=== PATIENT | female | born 1940 | race Caucasian/White ===

== ENCOUNTER 2017-08-19 21:58 | Inpatient (IN) | payer MEDICARE ==
[~2017-08-19] VITALS: Ht 152.4 cm; Wt 55.3 kg
[2017-08-19] MEDS: SODIUM CHLORIDE 0.9% 1000ML 1,000 ML IV SCH (01:30)
[~2017-08-19 21:58] MED LIST: CIPRO250 MG PO; CITRACAL + D E1 EACH; EXFORGE; EXFORGE HCT 101 EAC2; HYDROCODON-ACE1 EA10; KETOROLAC TROMET5 ML; PREDNISOLONE SO10 ML; VIGAMOX3 ML; Z VITAMIN D PO; Z.0.EXFORGE HCT 101 PO; Z.0.MELOXICAM15 MG PO; Z.0.PRAVASTATIN SOD8 PO
--- OUTSIDE RECORDS SUMMARY | 2017-08-19 22:00 | XMS REPORT ---
Author Author [facility] Address Unknown Phone Unavailable Care Team Providers Care Internal Audit Senior Manager Name Role Phone ZANDER BARCENAS Unavailable Unavailable Problems This patient has no known problems. Allergies, Adverse Reactions, Alerts This patient has no known allergies or adverse reactions. Medications This patient has no known medications. Results Test Description Test Time Test Comments Text Results Atomic Results Result Comments CHEST SINGLE (PORTABLE) [place] [address] Patient Name: DERIAN DUKES MR #: [id number] : 1940 Age/Sex: 76/F Req #: [id number] Adm Physician: Ordered by: ZANDER BARCENAS MD Report #: [id number] Location: ER Room/Bed: Procedure: [id number] DX/CHEST SINGLE (PORTABLE) Exam Date: 01/29/17 Exam Time: 1415 REPORT STATUS: Signed EXAMINATION: CHEST SINGLE (PORTABLE) INDICATION: Blood in stool COMPARISON : Chest x-ray 04/03/2011 FINDINGS: AP view TUBES and LINES: None. LUNGS: Lungs are well inflated. Lungs are clear. There is no evidence of pneumonia or pulmonary edema. PLEURA: No pleural effusion or pneumothorax. HEART AND MEDIASTINUM: The cardiomediastinal silhouette is unremarkable. BONES AND SOFT TISSUES: No acute osseous lesion. Soft tissues are unremarkable. UPPER ABDOMEN: No free air under the diaphragm. IMPRESSION: No acute thoracic abnormality. Signed by: Dr. Eben Villalobos M.D. on 01/29/2017 2:26 PM Dictated By: EBEN VILLALOBOS MD 25 Transcribed By: AMAN on 01/29/171425 COPY TO: ZANDER BARCENAS MD CT ABDOMEN/PELVIS W [place] [address] Patient Name: DERIAN DUKES MR #: [id number] : 1940 Age/Sex: 76/F Req #: [id number] Adm Physician: Ordered by: ZANDER BARCENAS MD Report #: [id number] Location: ER Room/Bed: Procedure: [id number] CT/CT ABDOMEN/PELVIS W Exam Date: 01/29/17 Exam Time : 1600 REPORT STATUS: Signed EXAM: CT Abdomen and Pelvis WITH contrast INDICATION: GI bleeding. Blood in the stool. Rectal bleeding. COMPARISON: CT abdomen and pelvis 09/21/2013. TECHNIQUE: Abdomen and pelvis were scanned utilizing a multidetector helical scanner from the lung base to the pubic symphysis after administration of IV contrast. Coronal and sagittal reformations were obtained. Routine protocol was performed. Scan was performed when during portal venous phase. IV CONTRAST: 100 mL of Isovue 370 ORAL CONTRAST: Gastrografin COMPLICATIONS: None RADIATION DOSE: Total DLP: 246 mGy*cm Estimated effective dose: (DLP x 0.015 x size factor) mSv CTDIvol has been reviewed. It is below the limits set by the Radiation Protocol Committee (RPC) . FINDINGS: LINES and TUBES: None. LOWER THORAX: Unremarkable HEPATOBILIARY: No focal hepatic lesions. No biliary ductal dilation. GALLBLADDER: No radio-opaque stones or sludge. No wall thickening. SPLEEN: No splenomegaly. PANCREAS: No focal masses or ductal dilatation. ADRENALS: No adrenal nodules KIDNEYS/URETERS: Kidneys enhance symmetrically. Right extrarenal pelvis. No hydronephrosis. No cystic or solid mass lesions. No stones. GI TRACT: No abnormal distention, wall thickening , or evidence of bowel obstruction. 1.9 cm duodenal diverticulum. There are diverticula within the colon without evidence of diverticulitis. Appendix is normal. PELVIC ORGANS/BLADDER: Unremarkable. LYMPH NODES: No lymphadenopathy. VESSELS: There is moderate atherosclerotic disease in the aorta and major arterial branches. PERITONEUM / RETROPERITONEUM: No free air or fluid. BONES: Unremarkable. SOFT TISSUES: Unremarkable. IMPRESSION: 1. No acute abnormalities in the abdomen or pelvis. 2. No source of rectal/GI bleeding. Signed by: Dr. Eben Villalobos M.D. on 01/29 4:54 PM Dictated By: EBEN VILLALOBOS MD [id number] Transcribed By: AMAN on 01/29/176 COPY TO: ZANDER BARCENAS MD
[2017-08-19] MEDS ORDERED: SODIUM CHLORIDE 0.9% 1000ML 1,000 ML IV STA (22:36)
[2017-08-19] MEDS ORDERED: PANTOPRAZOLE 40 MG 10ML VIAL IV STA ×2 (22:36→22:56)
[2017-08-19] MEDS ORDERED: MORPHINE SULFATE 2 MG/ML SYR IV STA (23:29)
[2017-08-19] MEDS ORDERED: ONDANSETRON HCL INJ 2 MG/ML VIAL IV STA (23:29)
[2017-08-19] MEDS ORDERED: ONDANSETRON HCL INJ 2 MG/ML VIAL IV PRN (23:30)
[2017-08-19] MEDS ORDERED: MORPHINE SULFATE 2 MG/ML SYR IV PRN (23:30)
[2017-08-20] VITALS (9 sets, daily range): BP systolic 128–182; BP diastolic 60–78
[2017-08-20] MEDS ORDERED: CLARITIN-D 241 EACH PO (02:31)
[2017-08-20] MEDS ORDERED: SIMVASTATIN20 MG PO (02:31)
[2017-08-20] MEDS ORDERED: CYCLOBENZAPRIN7.5 MG PO (02:31)
[2017-08-20] MEDS: PANTOPRAZOLE 40 MG 10ML VIAL IV SCH ×2 (08:02→20:52)
[2017-08-20] MEDS: SODIUM CHLORIDE 0.9% 1000ML 1,000 ML IV SCH (09:14)
[2017-08-20 10:03] LABS: EOSINOPHILS % 0.5 % (0.0-6.0); HEMATOCRIT 26.7 % (34.2-44.1); HEMOGLOBIN 8.9 g/dL (12.0-16.0); LYMPHOCYTES % 51.9 % (18.0-39.1); MEAN CORPUSCULAR HEMOGLOBIN 31.1 pg (28-32); MEAN CORPUSCULAR HGB CONC 33.3 g/dL (31-35); MEAN CORPUSCULAR VOLUME 93.4 fL (81-99); MONOCYTES # (AUTO) 0.1 (0.2-0.8); MONOCYTES % 5.9 % (4.4-11.3); NEUTROPHILS # (AUTO) 0.8 (2.1-6.9); NEUTROPHILS % 41.2 % (38.7-80.0); PLATELET COUNT 76 x10e3/uL (140-360); RED BLOOD COUNT 2.86 x10e6/uL (3.6-5.1); RED CELL DISTRIBUTION WIDTH 13.8 % (11.7-14.4)
[2017-08-20 10:18] LABS: ALANINE AMINOTRANSFERASE 14 IU/L (0-55); ALBUMIN 3.2 g/dL (3.5-5.0); ALBUMIN/GLOBULIN RATIO 1.2 (0.8-2.0); ALKALINE PHOSPHATASE 53 IU/L (40-150); ANION GAP 6.6 mmol/L (8-16); BLOOD UREA NITROGEN 10 mg/dL (7-26); BUN/CREATININE RATIO 14 (6-25); CALCIUM 8.1 mg/dL (8.4-10.2); CARBON DIOXIDE 27 mmol/L (22-29); CHLORIDE 110 mmol/L (98-107); CREATININE, SERUM 0.72 mg/dL (0.57-1.11); EST GLOMERULAR FILTRATION RATE > 60 ML/MIN (60-); GLUCOSE 90 mg/dL (74-118); POTASSIUM 3.6 mmol/L (3.5-5.1); SODIUM 140 mmol/L (136-145)
[2017-08-20 10:32] LABS: CREATINE KINASE 35 IU/L (29-168)
[2017-08-20 11:22] LABS: EOSINOPHILS % (MANUAL) 2 % (0-7); LYMPHOCYTES % (MANUAL) 45 % (19-48); METAMYELOCYTES % (MANUAL) 2 % (0-0); MYELOCYTES % (MANUAL) 1 % (0-0); NEUTROPHILS % (MANUAL) 45 % (40-74); PROMYELOCYTES % (MANUAL) 1 % (0-0); RBC MORPHOLOGY COMMENT NORMAL
[2017-08-20 11:23] LABS: ANISOCYTOSIS SLIG; ELLIPTOCYTE, RBC SLIGHT; MICROCYTOSIS SLIG; PLATELET MORPHOLOGY COMMENT NORMAL; POIKILOCYTOSIS SLIGHT
[2017-08-20 11:24] LABS: PLATELET ESTIMATE SLIGHTLY DECREASED
[2017-08-20] MEDS: AMLODIPINE BESYLATE 10 MG TAB PO SCH (12:02)
[2017-08-20 12:28] LABS: THYROID STIMULATING HORMONE 3.807 uIU/mL (0.350-4.940)
--- NOTE | 2017-08-20 12:39 | History and Physical ---
CHIEF COMPLAINT 1. Melena. 2. Pancytopenia. HISTORY: A 76-year-old female who has pancytopenia. At age 48, she was diagnosed. She is a poor historian, but she was supposed to take some pill that would make her lose hair. She had seen a leaf sucker operator multiple times, but since then she has not addressed that problem until Dr. Elina Newman sent her to another leaf sucker operator, but apparently she could not make an appointment as yet. The patient came in with pancytopenia. Her hemoglobin and hematocrit is 8.9 and 26.7 with WBC 1.8 and platelet of 76,000. No history of liver cirrhosis. No history of any other liver problem. Patient came to the hospital because she developed melena for 2 days. She has also complained of right hip and lower extremity pain. The patient is otherwise stable at this time. PAST MEDICAL HISTORY: Hypertension, pancytopenia, history of osteoarthritis and takes meloxicam, hyperlipidemia, and chronic pain. PAST SURGICAL HISTORY: Noncontributory. SOCIAL HISTORY: Patient does not smoke or use alcohol. No recreational drugs. ALLERGIES: NO KNOWN ALLERGY. HOME MEDICATIONS: Meloxicam, simvastatin, Claritin D, Delta, vitamin D, Flexeril, calcium supplement, Norvasc, losartan, and HCTZ. PHYSICAL EXAMINATION: VITAL SIGNS: Temperature is 98, blood pressure 144/67, pulse rate 63, respirations 18. GENERAL: The patient is not in acute distress. She is awake. HEENT: Normocephalic, atraumatic. Anicteric. NECK: Supple grossly. PULMONARY: Clear. CARDIOVASCULAR: Regular rate and rhythm. ABDOMEN: Soft and unremarkable. EXTREMITIES: No cyanosis or edema. NEUROLOGIC: There is no gross focal deficit. LABORATORY: WBC is 1.8, hemoglobin 8.9, hematocrit 27, platelets 76. Chemistries: Sodium 140, potassium 3.6, chloride 110, bicarb 27, BUN 10, creatinine 0.7, glucose is 90. IMAGING TESTS: Abdominal CT scan, she had that done back in January 2017, showed no abnormality. She also had chest x-ray, gallbladder ultrasound, and abdominal ultrasound. IMPRESSION 1. Pancytopenia. 2. Melena, most likely gastric ulcer given the fact that the patient is taking Mobic. 3. Hypertension baseline. PLAN: Consultation with GI. PPI. Full liquid diet for now. Patient will need to see a leaf sucker operator. Consultation with Dr. Bennett. Bone marrow needed. We will monitor the patient closely. Control her blood pressure. Job#: [id number] VAS
[2017-08-20 12:50] LABS: FOLATE 15.7 ng/mL (7.0-15.4)
[2017-08-20 16:20] LABS: EOSINOPHILS % 0.9 % (0.0-6.0); HEMATOCRIT 27.6 % (34.2-44.1); HEMOGLOBIN 9.3 g/dL (12.0-16.0); LYMPHOCYTES % 48.1 % (18.0-39.1); MEAN CORPUSCULAR HEMOGLOBIN 31.3 pg (28-32); MEAN CORPUSCULAR HGB CONC 33.7 g/dL (31-35); MEAN CORPUSCULAR VOLUME 92.9 fL (81-99); MONOCYTES # (AUTO) 0.1 (0.2-0.8); PLATELET COUNT 76 x10e3/uL (140-360); RED BLOOD COUNT 2.97 x10e6/uL (3.6-5.1); RED CELL DISTRIBUTION WIDTH 13.8 % (11.7-14.4)
[2017-08-20 16:41] LABS: CREATINE KINASE 36 IU/L (29-168)
[2017-08-20] MEDS ORDERED: SODIUM CHLORIDE 0.9% 50ML 50 ML ONE (17:42)
[2017-08-20] MEDS ORDERED: IOPAMIDOL 370 MG/ML 200 ML INFUS..BTL INJ ONE ×2 (17:44→17:56)
--- NOTE | 2017-08-20 19:59 | Diagnostic Imaging Report ---
EXAM: CT Chest, Abdomen and Pelvis WITH contrast INDICATION: #In the pineal COMPARISON: None. TECHNIQUE: Chest, abdomen and pelvis were scanned utilizing a multidetector helical scanner from the lung apex to the pubic symphysis before and after administration of IV contrast. Coronal and sagittal reformations were obtained. Routine protocol was performed. Scan was performed when during portal venous phase. IV CONTRAST: 100 mL of Isovue-370 ORAL CONTRAST: None RADIATION DOSE: Total DLP: 538.48 mGy*cm Estimated effective dose: (DLP x 0.015 x size factor) mSv COMPLICATIONS: None FINDINGS: LINES and TUBES: None. LUNGS AND AIRWAYS: The lungs are remarkable for mosaic attenuation of the lungs and biapical scarring.. Airways are normal. PLEURA: The pleural spaces are clear. HEART AND MEDIASTINUM: There are scattered subcentimeter hypodensities in the thyroid. No mediastinal, hilar or axillary lymphadenopathy. The heart is normal in size.. There is no pericardial effusion. There are mild atherosclerotic calcifications in the aorta and coronary arteries. HEPATOBILIARY: No focal hepatic lesions. No biliary ductal dilation. GALLBLADDER: No radio-opaque stones or sludge. No wall thickening. SPLEEN: No splenomegaly. PANCREAS: No focal masses or ductal dilatation. ADRENALS: No adrenal nodules KIDNEYS/URETERS: Kidneys enhance symmetrically. No hydronephrosis. No cystic or solid mass lesions. No stones. GI TRACT: No abnormal distention, wall thickening, or evidence of bowel obstruction. There are diverticula within the colon without evidence of diverticulitis. Appendix is normal. PELVIC ORGANS/BLADDER: Unremarkable. LYMPH NODES: No lymphadenopathy. VESSELS: There is mild atherosclerotic disease in the aorta and major arterial branches. PERITONEUM / RETROPERITONEUM: No free air or fluid. BONES: Unremarkable. SOFT TISSUES: Unremarkable. IMPRESSION: 1. No evidence of acute intrathoracic, abdominal or pelvic abnormality. 2. Chronic lung disease demonstrated by mosaic attenuation of the lungs which can be seen with reactive airway disease or bronchiolitis. No evidence of interstitial lung disease. Signed by: Dr. Cody Pryor M.D. on 08/20/2017 7:55 PM
--- NOTE | 2017-08-20 20:12 | Consultation ---
DATE OF CONSULTATION: August 20, 2017 Ms. Schmitz is a 77-year-old lady in [facility]. I was asked to see her because she was passing black-colored stool for 2 days. She denied any nausea, vomiting, abdominal discomfort, acid reflux symptoms, indigestion, dyspepsia, trouble with her bowels or losing weight. She was found to be pancytopenic with hemoglobin 8.9, hemoglobin 26.7, white cell count 1.8 and platelets 76. She is saying that she has used recent medicine to lose hair and thought to be contributing to her pancytopenia. She has been seen by a police captain precinct. GI-stern, she has had colonoscopy about [address] Ridley, and she reported to me it was normal. She has been using meloxicam every day for arthritis pain, and I believe that is the cause of her recent melena. REVIEW OF SYSTEMS: Unremarkable. PAST MEDICAL HISTORY: Hypertension, pancytopenia, degenerative joint disease. ALLERGIES: NONE. HOME MEDICATIONS: Meloxicam, simvastatin, clonidine, [place], vitamin D, calcium, Flexeril, Norvasc, losartan, and hydrochlorothiazide. CURRENT MEDICATIONS: Norvasc, Protonix and Zofran. PAST SURGICAL HISTORY: Noncontributory. SOCIAL HISTORY: She does not smoke or drink. PHYSICAL EXAMINATION GENERAL: Awake, alert and oriented, hemodynamically stable. VITALS: Pulse 63, temperature 97.3, respiratory rate 18, blood pressure 164/69. EYES: Normal sclerae. NECK: Supple. No node. LUNGS: Clear. HEART: Regular-regular, occasional irregular beat. ABDOMEN: Soft and nontender. No acute sign. No masses. EXTREMITIES: No edema. CENTRAL NERVOUS SYSTEM: Motor function is grossly intact. LABS: Sodium 140, potassium 3.6, BUN 10, creatinine 0.72, calcium 8.1. Iron saturation normal, B12 normal, folate normal. TSH is normal. Liver function normal. PTT 28. CT scan of the abdomen and pelvis with contrast is unremarkable. IMPRESSION: Melenic stool, most likely related to nonsteroidal anti-inflammatory drug. Will plan for upper endoscopy. Currently, no signs of active bleed. We will keep her on Protonix. MARCI SANTOS MD Job#: [id number] MH
[2017-08-21] VITALS (7 sets, daily range): BP systolic 118–132; BP diastolic 56–61
--- NOTE | 2017-08-21 02:03 | Operative Report ---
DATE OF PROCEDURE: PROCEDURE: Upper endoscopy. PREOP EVALUATION: Melena. POSTOP EVALUATION: Consent obtained from patient, explaining to the patient and her daughter the risks and benefits and other alternatives to the procedure. DESCRIPTION OF PROCEDURE: The scope was introduced under direct vision into the second portion of duodenum. Examination of first and second portion of the duodenum appeared to be normal. A biopsy was done for signs of celiac disease. Examination of the antrum, body, and fundus revealed some mild patchy erythema, and biopsies were done for Helicobacter pylori. Retroflexion revealed small hiatal hernia. Examination of the esophagus was unremarkable. Procedure was terminated. Patient tolerated the procedure well. No signs of complications during or immediately postprocedure. PLAN: Now to keep her on Protonix, advance her diet, and work other source for the melena such as small bowel and colonoscopy. Job#: [id number]
[2017-08-21 07:46] LABS: EOSINOPHILS % 0.7 % (0.0-6.0); HEMATOCRIT 27.9 % (34.2-44.1); HEMOGLOBIN 9.4 g/dL (12.0-16.0); LYMPHOCYTES % 37.1 % (18.0-39.1); MEAN CORPUSCULAR HEMOGLOBIN 31.1 pg (28-32); MEAN CORPUSCULAR HGB CONC 33.7 g/dL (31-35); MEAN CORPUSCULAR VOLUME 92.4 fL (81-99); MONOCYTES # (AUTO) 0.2 (0.2-0.8); MONOCYTES % 5.4 % (4.4-11.3); NEUTROPHILS # (AUTO) 1.6 (2.1-6.9); NEUTROPHILS % 56.4 % (38.7-80.0); PLATELET COUNT 78 x10e3/uL (140-360); RED BLOOD COUNT 3.02 x10e6/uL (3.6-5.1); RED CELL DISTRIBUTION WIDTH 13.8 % (11.7-14.4)
[2017-08-21] MEDS: AMLODIPINE BESYLATE 10 MG TAB PO SCH (08:06)
[2017-08-21] MEDS: PANTOPRAZOLE 40 MG 10ML VIAL IV SCH ×2 (08:06→21:05)
[2017-08-21 08:20] LABS: ANION GAP 10.4 mmol/L (8-16); BLOOD UREA NITROGEN 8 mg/dL (7-26); BUN/CREATININE RATIO 11 (6-25); CALCIUM 8.8 mg/dL (8.4-10.2); CARBON DIOXIDE 27 mmol/L (22-29); CHLORIDE 106 mmol/L (98-107); EST GLOMERULAR FILTRATION RATE > 60 ML/MIN (60-); GLUCOSE 79 mg/dL (74-118); POTASSIUM 3.4 mmol/L (3.5-5.1); SODIUM 140 mmol/L (136-145)
[2017-08-21] MEDS ORDERED: POTASSIUM CHLORIDE 10 MEQ TABCR PO ONE (09:45)
[2017-08-21] MEDS: CYANOCOBALAMIN INJ 1,000 MCG/ML VIAL IM SCH (10:14)
[2017-08-21] MEDS: FOLIC ACID/CYANOCOB/PYRIDOXINE TAB PO SCH (10:14)
[2017-08-21 11:42] LABS: EOSINOPHILS % 0.3 % (0.0-6.0); HEMATOCRIT 28.2 % (34.2-44.1); HEMOGLOBIN 9.5 g/dL (12.0-16.0); LYMPHOCYTES % 32.4 % (18.0-39.1); MEAN CORPUSCULAR HEMOGLOBIN 31.5 pg (28-32); MEAN CORPUSCULAR HGB CONC 33.7 g/dL (31-35); MEAN CORPUSCULAR VOLUME 93.4 fL (81-99); MONOCYTES # (AUTO) 0.2 (0.2-0.8); NEUTROPHILS # (AUTO) 1.8 (2.1-6.9); PLATELET COUNT 79 x10e3/uL (140-360); RED BLOOD COUNT 3.02 x10e6/uL (3.6-5.1); RED CELL DISTRIBUTION WIDTH 13.8 % (11.7-14.4)
[2017-08-21 18:46] LABS: EOSINOPHILS % 0.7 % (0.0-6.0); HEMATOCRIT 31.7 % (34.2-44.1); HEMOGLOBIN 10.5 g/dL (12.0-16.0); LYMPHOCYTES # (AUTO) 1.2 (1.0-3.2); LYMPHOCYTES % 41.8 % (18.0-39.1); MEAN CORPUSCULAR HEMOGLOBIN 30.7 pg (28-32); MEAN CORPUSCULAR HGB CONC 33.1 g/dL (31-35); MEAN CORPUSCULAR VOLUME 92.7 fL (81-99); MONOCYTES # (AUTO) 0.2 (0.2-0.8); MONOCYTES % 5.4 % (4.4-11.3); NEUTROPHILS # (AUTO) 1.5 (2.1-6.9); NEUTROPHILS % 52.1 % (38.7-80.0); PLATELET COUNT 101 x10e3/uL (140-360); RED BLOOD COUNT 3.42 x10e6/uL (3.6-5.1); RED CELL DISTRIBUTION WIDTH 13.8 % (11.7-14.4)
[2017-08-22 00:05] VITALS: BP 114/56
[2017-08-22 04:25] VITALS: BP 128/61
[2017-08-22 07:22] LABS: EOSINOPHILS % 1.2 % (0.0-6.0); HEMATOCRIT 26.8 % (34.2-44.1); HEMOGLOBIN 9.1 g/dL (12.0-16.0); LYMPHOCYTES # (AUTO) 1.3 (1.0-3.2); LYMPHOCYTES % 52.7 % (18.0-39.1); MEAN CORPUSCULAR HEMOGLOBIN 31.6 pg (28-32); MEAN CORPUSCULAR VOLUME 93.1 fL (81-99); MONOCYTES # (AUTO) 0.2 (0.2-0.8); MONOCYTES % 7.3 % (4.4-11.3); NEUTROPHILS % 38.8 % (38.7-80.0); PLATELET COUNT 80 x10e3/uL (140-360); RED BLOOD COUNT 2.88 x10e6/uL (3.6-5.1)
[2017-08-22 07:50] LABS: ANION GAP 8.8 mmol/L (8-16); BLOOD UREA NITROGEN 9 mg/dL (7-26); BUN/CREATININE RATIO 12 (6-25); CALCIUM 8.7 mg/dL (8.4-10.2); CARBON DIOXIDE 28 mmol/L (22-29); CHLORIDE 107 mmol/L (98-107); CREATININE, SERUM 0.73 mg/dL (0.57-1.11); EST GLOMERULAR FILTRATION RATE > 60 ML/MIN (60-); GLUCOSE 87 mg/dL (74-118); POTASSIUM 3.8 mmol/L (3.5-5.1); SODIUM 140 mmol/L (136-145)
[2017-08-22 08:00] VITALS: BP 123/60
[2017-08-22 09:00] VITALS: BP 123/60
[2017-08-22] MEDS: FOLIC ACID/CYANOCOB/PYRIDOXINE TAB PO SCH (09:08)
[2017-08-22] MEDS: CYANOCOBALAMIN INJ 1,000 MCG/ML VIAL IM SCH (09:08)
[2017-08-22] MEDS: PANTOPRAZOLE 40 MG 10ML VIAL IV SCH (09:08)
[2017-08-22] MEDS: AMLODIPINE BESYLATE 10 MG TAB PO SCH (09:09)
[2017-08-22 09:17] LABS: EOSINOPHILS % (MANUAL) 1 % (0-7); LYMPHOCYTES % (MANUAL) 43 % (19-48); MONOCYTES % (MANUAL) 7 % (3.4-9.0); MYELOCYTES % (MANUAL) 1 % (0-0); NEUTROPHILS % (MANUAL) 48 % (40-74)
[2017-08-22 09:18] LABS: ANISOCYTOSIS SLIGHT; HYPOCHROMASIA SLIGHT; PLATELET ESTIMATE SLIGHTLY DECREASED; PLATELET MORPHOLOGY COMMENT FEW LARGE; POIKILOCYTOSIS SLIGHT; RBC MORPHOLOGY COMMENT NORMAL
[2017-08-22] MEDS ORDERED: HEMOCYTE PLUS1 EACH PO (09:18)
[2017-08-22] MEDS ORDERED: INTRINSI B12-F1 EACH SL (09:20)
[2017-08-22] MEDS ORDERED: COLACE100 MG PO (09:21)
--- NOTE | 2017-08-22 09:53 | Discharge Summary ---
PRIMARY CARE PHYSICIAN: Elina Newman DO CONSULTANTS: Dr. Octavio Bennett and Dr. Rakesh Hayden. FINAL DIAGNOSES 1. 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 2. Pancytopenia with white blood cell count on admission 1.87 and platelets of 76. 3. B12 deficiency of 229. 4. Status post B12 replacement. SUMMARY: Patient is a pleasant, 76-year-old female who did not get a chance to see her bottling room worker as outpatient. She came in with lower back pain; but, more importantly, she was pancytopenic. Patient's workup found that she has low WBC and also low platelets and B12 deficiency as mentioned. She did receive B12 injection. Her latest lab work shows WBC is 2.4, hemoglobin 9.1, hematocrit 26.8 and platelets 80. The patient did have upper endoscopy due to melena. She does have some gastritis but no gross bleed. The patient's workup included iron level of 86, total iron binding capacity of 298, iron saturation 29, and transferrin 213. Troponin was negative. B12 level was 229. Folic acid was 15.7, and TSH is 3.8. The patient's BUN and creatinine are 9 and 0.73. The patient is stable. She did take Mobic at home which was discontinued. At this time, she is stable. She will go home with B12 1,000 mcg sublingual daily, Hemocyte Plus 1 tablet daily and Colace 100 mg b.i.d. She will continue her home medications except for Mobic. Patient was instructed to follow up with Dr. Rakesh Hayden of GI for M capsule and possible colonoscopy. She will follow up with Dr. Pizano, her outside bottling room worker, which she had not seen, or the bottling room worker covering for Dr. Gio Patel, whichever one she wants. She needs to follow up with repeated lab work. At this time, the patient is stable. She will go home today. Job#: [id number]
== END 2017-08-22 10:08 | disposition home or self-care (01) | DRG 812 ==
LOC: FSED 21:58 → MED/SURG3 08-20 01:01
PROVIDERS: ADMIT Internal Medicine; ATTEND Internal Medicine
PROC: 0DB98ZX Excision of Duodenum, Via Natural or Artificial Opening Endoscopic, Diagnostic (ICD-10-PCS; 2017-08-20)
PROC: 0DB68ZX Excision of Stomach, Via Natural or Artificial Opening Endoscopic, Diagnostic (ICD-10-PCS; principal; 2017-08-20 18:36)
DX: D50.0 Iron deficiency anemia secondary to blood loss (chronic) (principal); D61.818 Other pancytopenia; K92.1 Melena; E53.8 Deficiency of other specified B group vitamins; T39.395A Adverse effect of other nonsteroidal anti-inflammatory drugs [NSAID], initial encounter; M16.10 Unilateral primary osteoarthritis, unspecified hip; G89.29 Other chronic pain; I10 Essential (primary) hypertension; M16.11 Unilateral primary osteoarthritis, right hip; K44.9 Diaphragmatic hernia without obstruction or gangrene
CPT/HCPCS: 36415; 43239; 71260; 74177; 80048; 80053; 82550; 82553; 82607; 82746; 83540; 84443; 84466; 84484; 85025; 85730; 86850; 86900; 88305; 88312; 99284; J3420; J7030; Q9967

== ENCOUNTER 2017-09-12 10:29 | Emergency (ER) | payer MEDICARE ==
[~2017-09-12] VITALS: Ht 152.4 cm; Wt 53.1 kg
[~2017-09-12 10:29] MED LIST changes: +CLARITIN-D 241 EACH PO; +COLACE100 MG PO; +CYCLOBENZAPRIN7.5 MG PO; +HEMOCYTE PLUS1 EACH PO; +INTRINSI B12-F1 EACH SL; +SIMVASTATIN20 MG PO
--- OUTSIDE RECORDS SUMMARY | 2017-09-12 10:31 | XMS REPORT | Continuity of Care Document ---
Author Author [facility] Organization [facility] Address [address] [place] [address] Phone Unavailable Care Team Providers Care Halal Butcher Name Role Phone SOFIE PITTMAN DO PCP Insurance Providers Guarantor Derian Schmitz Address [address] [place] [address] Email Payer Medicare A & B Policy Number [id number] Subscriber's Name Derian Schmitz Relationship 18 Self / Same As Patient Group Name RETIRED Payer [facility] Policy Number [id number] Subscriber's Name Derian Schmitz Relationship 18 Self / Same As Patient Group Name RETIRED Advance Directives Directive Response Recorded Date/Time Does the patient have an advance directive? No 08/20/17 1:26am If yes, is advance directive on file with [facility]? No 04/03/11 5:42pm If not on file with [facility] will patient provide a copy? No 04/03/11 5:42pm Do you have a Directive to Physician? No 08/19/17 11:31pm Do you have a Medical Power of Senior Quality Assurance Specialist? No 08/19/17 11:31pm Do you have an out of hospital Do Not Resuscitate Order? No 08/19/17 11:31pm Do you have any special needs we should be aware of? No 08/19/17 11:31pm Do you have a support person here with you today? Yes 08/19/17 11:31pm Did patient receive Notice of Privacy Practices? Yes 08/19/17 11:31pm Did patient receive patient rights and responsibilities? Yes 08/19/17 11:31pm Problems Medical Problem Onset Date Status Back pain Unknown Pancytopenia Unknown UGIB (upper gastrointestinal bleed) Unknown Medications Current Home Medications Medication Dose Units Route Directions Days Qty Instructions Start Date Amlodipine/Valsartan/Hctz (Exforge Hct 10-320-25 Mg Tab) 1 Each Tablet Cyclobenzaprine Hcl 7.5 Mg Tablet 5 Mg Oral Daily Docusate Sodium (Colace) 100 Mg Cap 100 Mg Oral Twice A Day 30 Cap Ergocalciferol (Vitamin D2) (Vitamin D2) 400 Unit Tablet 1 Tab Oral Daily Fe Fumarate/Fa/Mv, Min Comb#15 (Hemocyte Plus Capsule) 1 Each Capsule 1 Tab Oral Daily Hydrocodone Bit/Acetaminophen (Hydrocodon-Acetaminophen 5-300) 1 Each Tablet Loratadine/Pseudoephedrine (Claritin-D 24 Hour Tablet) 1 Each Tab.er.24h 1 Each Oral Daily as needed for Allergy 30 Tab Simvastatin 20 Mg Tablet 20 Mg Oral Today At 9:00PM Vit B12/Intrins Fact/Fa Cmb #2 (Intrinsi A44-[id number] Tablet) 1 Each Tablet 1 Tab Sublingual Daily Past Home Medications Medication Directions Ordered Status Amlodipine/Valsartan/Hctz (Exforge Hct 10-320-25 Mg Tab) 1 Each Tablet, 1 Tab Oral Daily Discontinued Calcium Carb & Cit/Vitamin D3 (Citracal + D Er Tablet) 1 Each Tablet.er, Discontinued Ciprofloxacin Hcl (Cipro) 250 Mg Tablet, 250 Mg Oral Discontinued Ketorolac Tromethamine 5 Ml Drops, Discontinued Meloxicam 15 Mg Tablet, 1 Tab Oral Daily Discontinued Pravastatin Sodium 80 Mg Tablet, 1 Tab Oral Daily Discontinued Prednisolone Sod Phosphate (Prednisolone Sodium Phosphate) 10 Ml Drops, Discontinued Social History Social History Problem Response Recorded Date/Time Onset Date Status Hx Psychiatric Problems No 08/20/2017 1:26am Not Applicable Not Applicable Hx Eating Disorder No 08/20/2017 1:26am Not Applicable Not Applicable Hx Substance Use Disorder No 08/20/2017 1:26am Not Applicable Not Applicable Hx Depression No 08/20/2017 1:26am Not Applicable Not Applicable Hx Alcohol Use No 08/20/2017 1:26am Not Applicable Not Applicable Hx Substance Use Treatment No 08/20/2017 1:26am Not Applicable Not Applicable Hx Physical Abuse No 08/20/2017 1:26am Not Applicable Not Applicable Smoking Status Start Date Stop Date Never Smoker Hospital Discharge Instructions No hospital discharge instruction information available. Plan of Care Discharge Date 08/22/17 10:08am Disposition HOME, SELF-CARE Instructions/Education Provided GI Bleeding Prescriptions See Medication Section Additional Instructions/Education GI soft diet (No spicy foods) Activities as tolerated Follow Up WITH DR. SANTOS FOR FURTHER GI WORK UP, Follow Up WITH NUCLEAR EQUIPMENT TEST ENGINEER OF CHOICE NEXT WEEK, Follow Up WITH PCP IN ONE WEEK Functional Status Query Response Date Recorded Assistive Devices None August 20, 2017 1:30am Ambulation Ability Minimum Assistance August 20, 2017 1:30am Toileting Ability Independent August 21, 2017 9:00pm Allergies, Adverse Reactions, Alerts Allergen Type Severity Reaction Status Last Updated No Known Drug Allergies Allergy Unknown Active 08/20/17 Immunizations No immunization information available. Vital Signs Acute Vital Signs Vital Response Date/Time Temperature (Fahrenheit) 97.8 degrees F (97.6 - 99.5) 08/22/2017 9:00am Pulse Pulse Rate (adult) 67 bpm (60 - 90) 08/22/2017 9:00am Respiratory Rate 18 bpm (12 - 24) 08/22/2017 9:00am Blood Pressure 123/60 mm Hg 08/22/2017 9:00am Height 5 ft 0 in 08/19/2017 10:00pm Weight 122 lb 08/19/2017 10:00pm Body Mass Index 23.8 kg/m^2 08/20/2017 1:26am Results Laboratory Results Test Name Result Units Flags Reference Collection Date/Time Result Date/ Time Comments Prothrombin Time 12.5 seconds 11.9-14.5 01/29/2017 2:35pm 01/29/2017 2: 57pm Prothromb Time International Ratio 0.89 01/29/2017 2:35pm 2016 2:57pm Oral Anticoagulant Therapy INR Values: 1. Low Intensity Therapy 1.5 - 2.0 2. Moderate Intensity Therapy 2.0 - 3.0 3. High Intensity Therapy(1) 2.5 - 3.5 4. High Intensity Therapy(2) 3.0 - 4.0 5. Panic Value INR > 5.0 Urine Color YELLOW YELLOW 01/29/2017 2:35pm 01/29/2017 2:59pm Urine Clarity CLEAR CLEAR 01/29/2017 2:35pm 01/29/2017 2:59pm Urine Specific Pillow 1.015 1.010-1.025 01/29/2017 2:35pm 2016 2:59pm Urine pH 5 5 - 7 01/29/2017 2:35pm 01/29/2017 2:59pm Urine Leukocyte Esterase 2+ H NEGATIVE 01/29/2017 2:35pm 01/29/2017 2: 59pm Urine Nitrite POSITIVE H NEGATIVE 01/29/2017 2:35pm 01/29/2017 2:59pm Urine Protein NEGATIVE NEGATIVE 01/29/2017 2:35pm 01/29/2017 2:59pm Urine Glucose (UA) 1+ H NEGATIVE 01/29/2017 2:35pm 01/29/2017 2:59pm Urine Ketones NEGATIVE NEGATIVE 01/29/2017 2:35pm 01/29/2017 2:59pm Urine Urobilinogen 8 mg/dL H 0.2 - 1 01/29/2017 2:35pm 01/29/2017 2: 59pm Urine Bilirubin 3+ H NEGATIVE 01/29/2017 2:35pm 01/29/2017 2:59pm Urine Blood TRACE H NEGATIVE 01/29/2017 2:35pm 01/29/2017 2:59pm Urine WBC 0-5 /HPF 0-5 01/29/2017 2:35pm 01/29/2017 3:13pm Urine RBC 0-5 /HPF 0-5 01/29/2017 2:35pm 01/29/2017 3:13pm Urine Bacteria RARE /HPF NONE 01/29/2017 2:35pm 01/29/2017 3:13pm Urine Epithelial Cells FEW /LPF NONE 01/29/2017 2:35pm 01/29/2017 3: 13pm Urine Transitional Epithelial Cells FEW H NONE 01/29/2017 2:35pm 01/29 3:13pm White Blood Count 2.45 x10e3/uL L 4.8-10.8 08/22/2017 6:08/22/2017 7:25am Red Blood Count 2.88 x10e6/uL L 3.6-5.1 08/22/2017 6:08/22/2017 7: 25am Hemoglobin 9.1 g/dL L 12.0-16.0 08/22/2017 6:08/22/2017 7:25am Hematocrit 26.8 % L 34.2-44.1 08/22/2017 6:08/22/2017 7:25am Mean Corpuscular Volume 93.1 fL 81-99 08/22/2017 6:08/22/2017 7: 25am Mean Corpuscular Hemoglobin 31.6 pg 28-32 08/22/2017 6:08/22/2017 7:25am Mean Corpuscular Hemoglobin Concent 34.0 g/dL 31-35 08/22/2017 6:08/22/2017 7:25am Red Cell Distribution Width 14.0 % 11.7-14.4 08/22/2017 6:2017 7:25am Platelet Count 80 x10e3/uL L 140-360 08/22/2017 6:08/22/2017 7: 25am Neutrophils (%) (Auto) 38.8 % 38.7-80.0 08/22/2017 6:08/22/2017 7: 25am Lymphocytes (%) (Auto) 52.7 % H 18.0-39.1 08/22/2017 6:08/22/2017 7 :25am Monocytes (%) (Auto) 7.3 % 4.4-11.3 08/22/2017 6:08/22/2017 7: 25am Eosinophils (%) (Auto) 1.2 % 0.0-6.0 08/22/2017 6:08/22/2017 7: 25am Basophils (%) (Auto) 0.0 % 0.0-1.0 08/22/2017 6:08/22/2017 7:25am IM GRANULOCYTES % 0.0 % 0.0-1.0 08/22/2017 6:08/22/2017 7:25am Neutrophils # (Auto) 1.0 L 2.1-6.9 08/22/2017 6:30am 08/22/2017 7: 25am Lymphocytes # (Auto) 1.3 1.0-3.2 08/22/2017 6:30am 08/22/2017 7:25am Monocytes # (Auto) 0.2 0.2-0.8 08/22/2017 6:30am 08/22/2017 7:25am Eosinophils # (Auto) 0.0 0.0-0.4 08/22/2017 6:30am 08/22/2017 7:25am Basophils # (Auto) 0.0 0.0-0.1 08/22/2017 6:30am 08/22/2017 7:25am Absolute Immature Granulocyte (auto 0 x10e3/uL 0-0.1 08/22/2017 6:3008/22/2017 7:25am Differential Total Cells Counted 100 08/22/2017 6:3008/22/2017 9 :18am Neutrophils % (Manual) 48 % 40-74 08/22/2017 6:30am 08/22/2017 9:18am Lymphocytes % (Manual) 43 % 19-48 08/22/2017 6:30am 08/22/2017 9:18am Monocytes % (Manual) 7 % 3.4-9.0 08/22/2017 6:30am 08/22/2017 9:18am Eosinophils % (Manual) 1 % 0-7 08/22/2017 6:30am 08/22/2017 9:18am Basophils % (Manual) 1 % 0-1.5 08/20/2017 9:30am 08/20/2017 11:24am Metamyelocytes % 2 % H 0-0 08/20/2017 9:30am 08/20/2017 11:24am Myelocytes % 1 % H 0-0 08/22/2017 6:30am 08/22/2017 9:18am Promyelocytes % 1 % H 0-0 08/20/2017 9:30am 08/20/2017 11:24am Reactive Lymphocytes 3 08/20/2017 9:30am 08/20/2017 11:24am Platelet Estimate SLIGHTLY DECREASED 08/22/2017 6:3008/22/2017 9 :18am Platelet Morphology Comment FEW LARGE 08/22/2017 6:30am 08/22/2017 9:18am Hypochromasia SLIGHT 08/22/2017 6:30am 08/22/2017 9:18am Poikilocytosis SLIGHT 08/22/2017 6:30am 08/22/2017 9:18am Anisocytosis SLIGHT 08/22/2017 6:30am 08/22/2017 9:18am Microcytosis SLIG 08/20/2017 9:30am 08/20/2017 11:24am Elliptocytes SLIGHT 08/20/2017 9:30am 08/20/2017 11:24am Red Cell Morphology Comment NORMAL 08/22/2017 6:30am 08/22/2017 9: 18am Activated Partial Thromboplast Time 28.0 seconds 23.8-35.5 08/20/2017 9: 30am 08/20/2017 10:13am Sodium Level 140 mmol/L 136-145 08/22/2017 6:30am 08/22/2017 7:52am Potassium Level 3.8 mmol/L 3.5-5.1 08/22/2017 6:30am 08/22/2017 7:52am Chloride Level 107 mmol/L 98-107 08/22/2017 6:30am 08/22/2017 7:52am Carbon Dioxide Level 28 mmol/L 22-29 08/22/2017 6:30am 08/22/2017 7: 52am Anion Gap 8.8 mmol/L 8-16 08/22/2017 6:30am 08/22/2017 7:52am Blood Urea Nitrogen 9 mg/dL 7-08/22/2017 6:3008/22/2017 7:52am Creatinine 0.73 mg/dL 0.57-1.11 08/22/2017 6:30am 08/22/2017 7:52am BUN/Creatinine Ratio 12 6-08/22/2017 6:30am 08/22/2017 7:52am Estimat Glomerular Filtration Rate > 60 ML/MIN 60- 08/22/2017 6:30am 7:52am Ranges were taken from the National Kidney Disease Education Program and the National [employer] literature. Reference ranges: 60 or greater: Normal 16-59 (for 3 consecutive months): Chronic kidney disease 15 or less: Kidney failure Glucose Level 87 mg/dL 74-118 08/22/2017 6:30am 08/22/2017 7:52am Calcium Level 8.7 mg/dL 8.4-10.2 08/22/2017 6:30am 08/22/2017 7:52am Iron Level 86 ug/dL 50-170 08/20/2017 9:50am 08/20/2017 12:10pm Total Iron Binding Capacity 298 ug/dL 261-478 08/20/2017 9:50am 2017 12:10pm Percent Iron Saturation 29 % 15-50 08/20/2017 9:50am 08/20/2017 12: 10pm Transferrin 213 mg/dL 180-382 08/20/2017 9:50am 08/20/2017 12:10pm Total Bilirubin 0.4 mg/dL 0.2-1.2 08/20/2017 9:30am 08/20/2017 10:20am Aspartate Amino Transf (AST/SGOT) 20 IU/L 5-34 08/20/2017 9:30am 2017 10:20am Alanine Aminotransferase (ALT/SGPT) 14 IU/L 0-55 08/20/2017 9:30am 11/2017 10:20am Total Protein 5.9 g/dL L 6.5-8.1 08/20/2017 9:3008/20/2017 10:20am Albumin 3.2 g/dL L 3.5-5.0 08/20/2017 9:3008/20/2017 10:20am Globulin 2.7 g/dL 2.3-3.5 08/20/2017 9:3008/20/2017 10:20am Albumin/Globulin Ratio 1.2 0.8-2.0 08/20/2017 9:3008/20/2017 10: 20am Alkaline Phosphatase 53 IU/L 40-150 08/20/2017 9:3008/20/2017 10: 20am Creatine Kinase 36 IU/L 29-168 08/20/2017 3:35pm 08/20/2017 4:44pm Creatine Kinase MB 0.70 ng/mL 0-5.0 08/20/2017 3:35pm 08/20/2017 4: 45pm Troponin I < 0.001 ng/mL 0-0.300 08/20/2017 3:35pm 08/20/2017 4:45pm Vitamin B12 Level 229 pg/mL 213-816 08/20/2017 9:50am 08/20/2017 12: 53pm Folate 15.7 ng/mL H 7.0-15.4 08/20/2017 9:50am 08/20/2017 12:53pm Thyroid Stimulating Hormone (TSH) 3.807 uIU/mL 0.350-4.940 08/20/2017 9: 50am 08/20/2017 12:32pm Procedures Procedure Status Date Provider(s) EGD with biopsy Completed 08/20/17 MARCI SANTOS MD Computed tomography of abdomen and pelvis with contrast Active 01/29/17 ZANDER BARCENAS MD Computed tomography of chest with contrast Active 08/20/17 DEEPIKA WHITLOCK MD Computed tomography of abdomen and pelvis with contrast Active 08/20/17 DEEPIKA WHITLOCK MD Encounters Encounter Location Arrival/Admit Date Discharge/Depart Date Attending Provider Discharged Inpatient [facility] 08/20/17 1:01am 08/22/17 10:08am DEEPIKA WHITLOCK MD Departed Emergency Room [facility] 01/29/17 1:39pm 5:33pm ZANDER BARCENAS MD
[2017-09-12] MEDS ORDERED: BENADRYL25 M1 PO (10:50)
[2017-09-12] MEDS ORDERED: ULTRAM 50MG50 MG PO (10:50)
== END 2017-09-12 11:18 | disposition home or self-care (01) ==
LOC: FSED 10:29
DX: L50.1 Idiopathic urticaria (principal); L24.9 Irritant contact dermatitis, unspecified cause; I10 Essential (primary) hypertension
CPT/HCPCS: 99282

== ENCOUNTER 2017-11-05 09:14 | Emergency (ER) | payer MEDICARE ==
[~2017-11-05] VITALS: Ht 157.5 cm; Wt 52.4 kg
[~2017-11-05 09:14] MED LIST changes: +BENADRYL25 M1 PO; +ULTRAM 50MG50 MG PO
[2017-11-05 10:16] VITALS: BP 143/69
== END 2017-11-05 10:21 | disposition home or self-care (01) ==
LOC: FSED 09:14
DX: M54.6 Pain in thoracic spine (principal); S29.012A Strain of muscle and tendon of back wall of thorax, initial encounter; R11.0 Nausea; I10 Essential (primary) hypertension; E78.00 Pure hypercholesterolemia, unspecified
CPT/HCPCS: 99283

== ENCOUNTER 2017-11-30 06:07 | Emergency (ER) | payer MEDICARE ==
[~2017-11-30] VITALS: Ht 157.5 cm; Wt 50.8 kg
[2017-11-30] MEDS ORDERED: LEVOFLOXACIN 500 MG TAB PO ONE (06:30)
[2017-11-30] MEDS ORDERED: LEVOFLOXACIN 500MG/D5W 100ML 100 ML IV ONE (06:45)
[2017-11-30 08:22] VITALS: BP 146/71
== END 2017-11-30 08:20 | disposition home or self-care (01) ==
LOC: FSED 06:07
DX: R30.0 Dysuria (principal); R35.0 Frequency of micturition; R31.9 Hematuria, unspecified
CPT/HCPCS: 81003; 99284; J1956

== ENCOUNTER 2018-03-15 23:57 | Emergency (ER) | payer MEDICARE ==
[~2018-03-15] VITALS: Ht 154.9 cm; Wt 51.3 kg
[~2018-03-15 23:57] MED LIST changes: -EXFORGE HCT 101 EAC2; +EXFORGE HCT 101 EAC2 PO
--- OUTSIDE RECORDS SUMMARY | 2018-03-15 23:59 | XMS REPORT | Continuity of Care Document ---
Author Author [facility] Interface Address Unknown Phone Unavailable Problems Problem Status Onset Date Classification Date Reported Comments Source Vitamin D deficiency Active Problem 03/09/2018 [facility] DDD , lumbar Active Problem 03/09/2018 [facility] Primary insomnia Active Problem 03/09/2018 [facility] HTN Active Problem 03/09/2018 [facility] Hyperlipidemia Active Problem 03/09/2018 [facility] Sciatica Active Diagnosis 09/22/2017 [facility] Leukopenia Active Problem 03/09/2018 [facility] Influenza A Active Diagnosis 05/05/2017 [facility] URI with cough and congestion Active Diagnosis 09/22/2017 [facility] Neck pain Active Diagnosis 04/29/2017 [facility] Breast cancer screening Active Diagnosis 09/07/2016 [facility] Prediabetes Active Problem 08/06/2016 [facility] Hypothyroid Active Problem 08/06/2016 [facility] Urine frequency Active Diagnosis 08/06/2016 [facility] Right sided sciatica Active Problem 03/09/2018 [facility] Pancytopenia Active Problem 03/09/2018 [facility] Thrombocytopenia Active Problem 03/09/2018 [facility] BMI 21.0-21.9, adult Active Diagnosis 09/22/2017 [facility] Adverse effect of other nonsteroidal anti-inflammatory drugs [NSAID], initial encounter Active Diagnosis 09/22/2017 [facility] Anemia, unspecified type Active Diagnosis 09/22/2017 [facility] Gastrointestinal hemorrhage, unspecified Active Diagnosis 09/22/2017 [facility] Arthritis Active Diagnosis 03/19/2015 [facility] Hyperlipidemia Active Problem 03/19/2015 [facility] Fibromyalgia Active Problem 04/30/2015 [facility] Acute nasopharyngitis Active Diagnosis 03/19/2015 [facility] Knee pain, unspecified laterality Active Diagnosis 03/19/2015 [facility] Thrombocytosis Active Problem 04/30/2015 [facility] Prediabetes Active Problem 03/19/2015 [facility] Hyperlipidemia Active Problem 04/30/2015 [facility] Hypothyroidism Active Problem 03/19/2015 [facility] HTN Active Problem 03/19/2015 [facility] Vitamin d deficiency Active Problem 11/22/2015 [facility] Body mass index of 21.0-21.9 in adult Active Problem 03/19/2015 [facility] Right hip pain Active Diagnosis 11/22/2015 [facility] Breast screening Active Diagnosis 11/22/2015 [facility] Seasonal allergic rhinitis due to pollen Active Problem 03/09/2018 [facility] Gastroesophageal reflux disease without esophagitis Active Problem 03/09/2018 [facility] Acute non-recurrent maxillary sinusitis Active Diagnosis 02/09/2018 [facility] Acute bilateral thoracic back pain Active Diagnosis 02/09/2018 [facility] Combined hyperlipidemia Active Diagnosis 04/30/2015 [facility] Encounter for immunization Active Diagnosis 01/28/2016 [facility] Breast pain Active Diagnosis 03/09/2018 [facility] Medications Medication Details Route Status Patient Instructions Ordering Provider Order Date Source Flonase 1 spray in each nostril Nasally Active 50 MCG/ACT Nasally Once a day Thompson 01/26/2018 [facility] Medrol as directed & to be started sun as discussed w/ pt Orally Active 4 mg Orally as directed Thompson 01/26/2018 [facility] Tramadol HCl 1-2 tablet as needed Orally Active 50 mg Orally every 6 hrs as needed for breakthrough pain Thompson 01/26/2018 [facility] Omeprazole 1 capsule Orally Active 20 mg Orally Once a day Thompson 01/26/2018 [facility] Exforge HCT 1 tablet Orally Active 10-320-25 MG Orally Once a day Thompson 08/26/2017 [facility] Tramadol HCl 1 tablet as needed Orally Active 50 mg Orally once or twice a day [place] 08/25/2017 [facility] Meloxicam 1 tablet Orally Active 15 MG Orally one a day PRN Alex 08/22/2017 [facility] Cheratussin AC 5 ml Orally Active 100-10 MG/5ML Orally every 4 hrs [place] 05/02/2017 [facility] Tamiflu 1 capsule Orally Active 75 mg Orally Twice a day [place] 05/02/2017 [facility] Meloxicam 1 tablet Orally Active 15 MG Orally Once a day [place] 02/01/2017 [facility] Meloxicam 1 tablet Orally Active 15 MG Orally Once a day Fred Cardenas 01/21/2017 [facility] Mirtazapine 1 tablet on the tongue and allow to dissolve before bedtime in the evening Orally Active 15 MG Orally Once a day Kevin 08/05/2016 [facility] Mirtazapine 1 tablet on the tongue and allow to dissolve before bedtime in the evening Orally Active 15 MG Orally Once a day Alex 08/05/2016 [facility] Cipro 1 tablet Orally Active 500 MG Orally Twice a day [place] 08/05/2016 [facility] Simvastatin 1 tablet in the evening Orally Active 20 MG Orally Once a day (MUST SEE DOCTOR BEFORE NEXT REFILL) Kevin 07/29/2016 [facility] Meloxicam 1 tablet Orally Active 15 MG Orally Once a day [place] 07/19/2016 [facility] Medrol (Fernando) as directed Orally Active 4 mg Orally daily Alex 11/20/2015 [facility] Simvastatin 1 tablet in the evening Orally Active 20 mg Orally Once a day for cholesterol Alex 05/21/2015 [facility] Mobic 1 tablet Orally Active 15 MG Orally Once a day as needed Kevin 05/20/2015 [facility] Benzonatate 1 capsule as needed Orally Active 200 MG Orally three times a day (tid) as needed (prn) Kevin 03/17/2015 [facility] Exforge HCT 1 tablet Orally Active 10-320-25 MG Orally Once a dayBRAND ONLY Alex 11/21/2014 [facility] Exforge HCT 1 tablet Orally Active 10-320-25 MG Orally Once a dayBRAND ONLY Alex 11/21/2014 [facility] Acetaminophen-Codeine #3 1 tablet as needed Orally Active 300- 30 MG Orally every 6 hrs for PAIN Kevin 10/24/2014 [facility] Acetaminophen-Codeine #3 1 tablet as needed Orally Active 300- 30 MG Orally every 6 hrs for PAIN Alex 10/24/2014 [facility] Simvastatin 1 tablet in the evening Orally Active 20 MG Orally Once a day for cholesterol [facility]ra Cardenas [facility] Hvgiloqesr-Mudtwngiu-UVST 1 tablet Orally Active 10-320-25 MG Orally Once a day Alex [facility] Meloxicam 1 tablet Orally Active 15 MG Orally one a day PRN Alex [facility] Citracal Calcium+D as directed Orally Active 600-40-500 MG-MG-UNIT Orally Jay [facility] Cyclobenzaprine HCl 1 tablet as needed Orally Active 5 MG Orally one a day, PRN Jay [facility] Multivitamin not defined Orally Active Orally Thompson [facility] Vicodin one half to 1 tablet as needed Orally Active 5-300 MG Orally once or twice a day if needed for pain Jay [facility] Simvastatin 1 tablet in the evening Orally Active 20 MG Orally Once a day for cholesterol Thompson [facility] Fish Oil 1 capsule Orally Active 1000 MG Orally Once a day Kevin [facility] Riakmedtzf-Bubzyzcbj-VMKM 1 tablet Orally Active 10-320-25 MG Orally Once a day Alex [facility] Vicodin one half to 1 tablet as needed Orally Active 5-300 MG Orally once or twice a day if needed for pain Alex [facility] Fish Oil 1 capsule Orally Active 1000 MG Orally Once a day Alex [facility] Simvastatin 1 tablet in the evening Orally Active 20 Orally Once a day for cholesterol Thompson [facility] Acetaminophen-Codeine 1 tablet as needed Orally Active 300-30 MG Orally every 6 hrs Kevin [facility] Cyclobenzaprine HCl 1 tablet Orally Active 5 MG Orally Three times a day Kevin [facility] Vitamin D3 as directed Orally Active 2000 UNIT Orally [facility] Cheratussin AC 5 ml Orally Active 100-10 MG/5ML Orally every 4 hrs Thompson [facility] Omeprazole 1 capsule Orally Active 40 MG Orally Once a day Jay [facility] Tramadol HCl 1 tablet as needed Orally Active 50 mg Orally once or twice a day Jay [facility] Pravastatin Sodium 1 tablet Orally No Longer Active 80 mg Orally am Alex [facility] Flexeril 1 tablet Orally Active 5 MG Orally Three times a day Kevin [facility] Citracal Calcium+D as directed Orally Active 600-40-500 MG-MG-UNIT Orally Alex [facility] Meloxicam 1 tablet Orally Active 15 MG Orally Once a day Alex [facility] Allergies, Adverse Reactions, Alerts Substance Category Reaction Severity Reaction type Status Date Reported Comments Source N.K.D.A. Adverse Reaction Info Not Available Adverse Reaction Active 01/26/2018 [facility] Immunizations Immunization Date Given Site Status Last Updated Comments Source [place]UZONE [place] & [place] [id number] 01/21/2016 completed [facility] Results Order Name Results Value Reference Range Date Interpretation Comments Source Vital Signs Vital Sign Value Date Comments Source Weight 114 01/26/2018 [facility] Height 62 01/26/2018 [facility] Temperature Oral (F) 98.4 F 01/26/2018 [facility] Heart Rate 77 01/26/2018 [facility] Diastolic (mm Hg) 72 01/26/2018 [facility] Systolic (mm Hg) 168 01/26/2018 [facility] Weight 117 09/05/2017 [facility] Height 62 09/05/2017 [facility] Temperature Oral (F) 98.1 F 09/05/2017 [facility] Heart Rate 61 09/05/2017 [facility] Diastolic (mm Hg) 62 09/05/2017 [facility] Systolic (mm Hg) 158 09/05/2017 [facility] Weight 118 08/25/2017 [facility] Height 62 08/25/2017 [facility] Temperature Oral (F) 98.4 F 08/25/2017 [facility] Heart Rate 82 08/25/2017 [facility] Diastolic (mm Hg) 60 08/25/2017 [facility] Systolic (mm Hg) 136 08/25/2017 [facility] Weight 119 07/14/2017 [facility] Height 62 07/14/2017 [facility] Heart Rate 70 07/14/2017 [facility] Diastolic (mm Hg) 62 07/14/2017 [facility] Systolic (mm Hg) 150 07/14/2017 [facility] Weight 121 05/02/2017 [facility] Height 62 05/02/2017 [facility] Temperature Oral (F) 99.4 F 05/02/2017 [facility] Heart Rate 89 05/02/2017 [facility] Diastolic (mm Hg) 64 05/02/2017 [facility] Systolic (mm Hg) 148 05/02/2017 [facility] Weight 122 04/27/2017 [facility] Height 62 04/27/2017 [facility] Heart Rate 70 04/27/2017 [facility] Diastolic (mm Hg) 66 04/27/2017 [facility] Systolic (mm Hg) 132 04/27/2017 [facility] Weight 121 08/26/2016 [facility] Height 62 08/26/2016 [facility] Heart Rate 63 08/26/2016 [facility] Diastolic (mm Hg) 60 08/26/2016 [facility] Systolic (mm Hg) 132 08/26/2016 [facility] Weight 121 08/05/2016 [facility] Height 62 08/05/2016 [facility] Heart Rate 78 08/05/2016 [facility] Diastolic (mm Hg) 68 08/05/2016 [facility] Systolic (mm Hg) 122 08/05/2016 [facility] Weight 123 01/21/2016 [facility] Height 62 01/21/2016 [facility] Diastolic (mm Hg) 72 01/21/2016 [facility] Systolic (mm Hg) 130 01/21/2016 [facility] Weight 122 11/20/2015 [facility] Height 62 11/20/2015 [facility] Diastolic (mm Hg) 70 11/20/2015 [facility] Systolic (mm Hg) 140 11/20/2015 [facility] Weight 120 05/21/2015 [facility] Height 62 05/21/2015 [facility] Heart Rate 72 05/21/2015 [facility] Diastolic (mm Hg) 76 05/21/2015 [facility] Systolic (mm Hg) 124 05/21/2015 [facility] Weight 120 03/17/2015 [facility] Height 62 03/17/2015 [facility] Temperature Oral (F) 98.4 F 03/17/2015 [facility] Heart Rate 70 03/17/2015 [facility] Diastolic (mm Hg) 80 03/17/2015 [facility] Systolic (mm Hg) 132 03/17/2015 [facility] Encounters Location Location Details Encounter Type Encounter Number Reason For Visit Attending Provider ADM Date DC Date Status Source [facility] COUGH [id number] 03/17/2015 03/17/2015 [facility] COUGH [id number] 03/17/2015 03/17/2015 [facility] COUGH [id number] 03/17/2015 03/17/2015 [facility] COUGH [id number] 03/17/2015 03/17/2015 [facility] COUGH [id number] 03/17/2015 03/17/2015 [facility] labs [id number] 04/29/2015 04/29/2015 [facility] labs [id number] 04/29/2015 04/29/2015 [facility] labs [id number] 04/29/2015 04/29/2015 [facility] labs [id number] 04/29/2015 04/29/2015 [facility] lab results [id number] 05/21/2015 05/21/2015 [facility] lab results [id number] 05/21/2015 05/21/2015 [facility] lab results [id number] 05/21/2015 05/21/2015 [facility] hip pain [id number] 11/20/2015 11/20/2015 [facility] hip pain [id number] 11/20/2015 11/20/2015 [facility] Discuss MEDS [id number] 01/21/2016 01/21/2016 [facility] Procedures Procedure Code Date Perfomer Comments Source
--- OUTSIDE RECORDS SUMMARY | 2018-03-16 | XMS REPORT ---
Author Author Jeet Thompson [facility] e[employer] Address Unknown Phone Unavailable Care Team Providers Care Senior Java Architect Name Role Phone Jeet Thompson Unavailable Allergies, Adverse Reactions, Alerts Substance Reaction Event Type N.K.D.A. Info Not Available Non Drug Allergy Problems Problem Type Condition Code Onset Dates Condition Status Problem HTN (hypertension) I10 Active Problem DDD (degenerative disc disease), lumbar M51.36 Active Problem Leukopenia D72.819 Active Problem Seasonal allergic rhinitis due to pollen J30.1 Active Problem Thrombocytopenia D69.6 Active Problem Gastroesophageal reflux disease without esophagitis K21.9 Active Problem Primary insomnia F51.01 Active Problem Vitamin D deficiency E55.9 Active Problem Pancytopenia D61.818 Active Problem Right sided sciatica M54.31 Active Assessment Acute non-recurrent maxillary sinusitis J01.00 Active Assessment Gastroesophageal reflux disease without esophagitis K21.9 Active Assessment Acute bilateral thoracic back pain M54.6 Active Assessment Seasonal allergic rhinitis due to pollen J30.1 Active Problem Hyperlipidemia E78.5 Active Medications Medication Code System Code Instructions Start Date End Date Status Dosage Citracal Calcium+D ND 0 600-40-500 MG-MG-UNIT Orally Active as directed Flonase ND 32552307474 50 MCG/ACT Nasally Once a day Jan 26, 2018 Active 1 spray in each nostril Exforge HCT ND 30606193982 10-320-25 MG Orally Once a day August 26, 2017 Active 1 tablet Medrol ND 76583658158 4 mg Orally as directed Jan 26, 2018 Feb 01, 2018 Active as directed & to be started sun as discussed w/ pt Cyclobenzaprine HCl ND 46090045207 5 MG Orally one a day, PRN Active 1 tablet as needed Tramadol HCl ND 32051095125 50 mg Orally every 6 hrs as needed for breakthrough pain Jan 26, 2018 Mar 27, 2018 Active 1-2 tablet as needed Simvastatin ND 88192528922 20 Orally Once a day for cholesterol Active 1 tablet in the evening Cheratussin AC [facility] 11763420905 100-10 MG/5ML Orally every 4 hrs Active 5 ml Omeprazole [facility] 21406580470 40 MG Orally Once a day Active 1 capsule Omeprazole [facility] 84620780405 20 mg Orally Once a day Jan 26, 2018 Active 1 capsule Vicodin [facility] 37958464794 5-300 MG Orally once or twice a day if needed for pain Active one half to 1 tablet as needed Multivitamin [facility] 62154-46750 Orally Active not defined Simvastatin [facility] 88841380075 20 MG Orally Once a day for cholesterol Active 1 tablet in the evening Tramadol HCl [facility] 18950910852 50 mg Orally once or twice a day Active 1 tablet as needed Vital Signs Date/Time: Jan 26, 2018 BMI 20.85 Index Weight 114 lbs Height 62 in Temperature 98.4 F Cardiac Monitoring Heart Rate 77 /min Blood Pressure Diastolic 72 mm Hg Blood Pressure Systolic 168 mm Hg Results Name Result Date Reference Range Unit Abnormality Flag KENALOG 10MG EKG DECADRON 1MGx4 Summary Purpose eClinicalWorks Submission
--- OUTSIDE RECORDS SUMMARY | 2018-03-16 | XMS REPORT ---
Author Author Elina Gibbons Organization [employer] Address Unknown Phone Unavailable Care Team Providers Care Contact Center Consultant Name Role Phone Elina Gibbons CP Unavailable Allergies No Known Allergies Problems Problem Type Condition Code Onset Dates Condition Status Problem HTN (hypertension) I10 Active Problem DDD (degenerative disc disease), lumbar M51.36 Active Problem Leukopenia D72.819 Active Assessment Breast pain N64.4 Active Problem Hyperlipidemia E78.5 Active Problem Seasonal allergic rhinitis due to pollen J30.1 Active Problem Thrombocytopenia D69.6 Active Problem Gastroesophageal reflux disease without esophagitis K21.9 Active Problem Primary insomnia F51.01 Active Problem Vitamin D deficiency E55.9 Active Problem Pancytopenia D61.818 Active Problem Right sided sciatica M54.31 Active Medications No Known Medications Results No Known Results Summary Purpose eClinicalWorks Submission
[2018-03-16] MEDS ORDERED: ONDANSETRON HCL INJ 2 MG/ML VIAL IV STA (00:37)
[2018-03-16] MEDS ORDERED: FAMOTIDINE 20 MG/2 ML VIAL IV STA (00:37)
== END 2018-03-16 01:43 | disposition home or self-care (01) ==
LOC: FSED 23:57
DX: R11.2 Nausea with vomiting, unspecified (principal); K29.00 Acute gastritis without bleeding; I10 Essential (primary) hypertension; E78.5 Hyperlipidemia, unspecified; M54.5 Low back pain; M19.012 Primary osteoarthritis, left shoulder; M19.011 Primary osteoarthritis, right shoulder
CPT/HCPCS: 80053; 81003; 82553; 84484; 85025; 93005; 99283

== ENCOUNTER 2018-03-18 02:53 | Emergency (ER) | payer MEDICARE ==
[~2018-03-18] VITALS: Ht 154.9 cm; Wt 51.3 kg
[2018-03-18 03:16] LABS: HEMATOCRIT 38.4 % (34.2-44.1); HEMOGLOBIN 12.8 g/dL (12.0-16.0); LYMPHOCYTES # (AUTO) 1.1 (1.0-3.2); LYMPHOCYTES % 38.8 % (18.0-39.1); MEAN CORPUSCULAR HEMOGLOBIN 31.2 pg (28-32); MEAN CORPUSCULAR HGB CONC 33.3 g/dL (31-35); MEAN CORPUSCULAR VOLUME 93.7 fL (81-99); MONOCYTES # (AUTO) 0.3 (0.2-0.8); MONOCYTES % 9.2 % (4.4-11.3); NEUTROPHILS # (AUTO) 1.4 (2.1-6.9); PLATELET COUNT 123 x10e3/uL (140-360); RED CELL DISTRIBUTION WIDTH 14.6 % (11.7-14.4)
[2018-03-18 03:26] LABS: INR 0.93; PARTIAL THROMBOPLASTIN TIME 26.4 seconds (23.8-35.5); PROTHROMBIN TIME 13.3 seconds (11.9-14.5)
[2018-03-18] MEDS ORDERED: PANTOPRAZOLE SO40 MG PO (03:33)
[2018-03-18] MEDS ORDERED: FLUTICASONE PRO16 GM (03:33)
[2018-03-18] MEDS ORDERED: ZOFRAN ODT4 MG SL (03:33)
[2018-03-18 03:35] LABS: ALANINE AMINOTRANSFERASE 12 IU/L (0-55); ALBUMIN 4.3 g/dL (3.5-5.0); ALBUMIN/GLOBULIN RATIO 1.2 (0.8-2.0); ALKALINE PHOSPHATASE 61 IU/L (40-150); ANION GAP 17.7 mmol/L (8-16); BLOOD UREA NITROGEN 18 mg/dL (7-26); CALCIUM 9.8 mg/dL (8.4-10.2); CARBON DIOXIDE 25 mmol/L (22-29); CHLORIDE 100 mmol/L (98-107); CREATINE KINASE 40 IU/L (29-168); GLUCOSE 112 mg/dL (74-118); POTASSIUM 3.7 mmol/L (3.5-5.1); SODIUM 139 mmol/L (136-145)
--- NOTE | 2018-03-18 03:37 | Diagnostic Imaging Report ---
EXAM: CHEST 2 VIEWS, PA and lateral INDICATION: Chest pain COMPARISON: None FINDINGS: LINES/TUBES: None LUNGS: No consolidations or edema. Biapical pleural parenchymal scarring. PLEURA: No effusions or pneumothorax. HEART AND MEDIASTINUM: Normal size and contour. BONES AND SOFT TISSUES: No acute findings. IMPRESSION: No acute thoracic abnormality. Signed by: Dr. Vicki Arcos M.D. on 03/18/2018 3:33 AM
[2018-03-18] MEDS ORDERED: ONDANSETRON HCL INJ 2 MG/ML VIAL IV STA (03:41)
[2018-03-18] MEDS ORDERED: FAMOTIDINE 20 MG/2 ML VIAL IV STA (03:41)
[2018-03-18] MEDS ORDERED: BELLADONNA ALK/PHENOBARBITAL 5 ML UDC ONE (03:44)
[2018-03-18] MEDS ORDERED: FAMOTIDINE 20 MG/2 ML VIAL IV ONE (03:44)
[2018-03-18] MEDS ORDERED: BELLADONNA ALK/PHENOBARBITAL 5 ML UDC PO ONE (03:45)
[2018-03-18] MEDS ORDERED: LIDOCAINE VISC 2% SOLN 15 ML UDC PO ONE (03:45)
[2018-03-18] MEDS ORDERED: MAGNESIUM/ALUMINUM/SIMETHICONE 30 ML UDC PO ONE (03:45)
[2018-03-18 03:55] LABS: BUN/CREATININE RATIO 17 (6-25); CREATININE, SERUM 1.04 mg/dL (0.57-1.11); EST GLOMERULAR FILTRATION RATE 51 ML/MIN (60-)
[2018-03-18] MEDS ORDERED: SODIUM CHLORIDE 0.9% 500ML 500 ML IV STA (04:38)
[2018-03-18] MEDS ORDERED: SODIUM CHLORIDE 0.9% 500ML 500 ML ONE (04:38)
[2018-03-18] MEDS ORDERED: SODIUM CHLORIDE 0.9% 50ML 50 ML ONE (04:45)
[2018-03-18] MEDS ORDERED: IOPAMIDOL 370 MG/ML 200 ML INFUS..BTL INJ ONE (04:45)
--- NOTE | 2018-03-18 05:33 | Diagnostic Imaging Report ---
EXAM: CT ABDOMEN AND PELVIS with IV CONTRAST DATE: 03/18/2018 4:29 AM Time stamp on Exam: 0506 hours INDICATION: Epigastric pain COMPARISON: August 20, 2017 TECHNIQUE: The abdomen and pelvis were scanned using a multidetector helical scanner. Coronal and sagittal reformations were obtained. Dose modulation, iterative reconstruction, and/or weight based adjustment of the mA/kV was utilized to reduce the radiation dose to as low as reasonably achievable. Routine protocol performed. IV Contrast: 100 cc Isovue-370 Oral Contrast: None FINDINGS: LOWER THORAX: No consolidations LIVER: No masses BILIARY: The gallbladder is unremarkable. No ductal dilation. SPLEEN: No masses PANCREAS: No masses ADRENALS: No nodules KIDNEYS: Symmetric perfusion. No enhancing masses. No hydronephrosis. GI TRACT: No distention, wall thickening or evidence of obstruction. Sigmoid colon diverticulosis. Normal appendix. VESSELS: Moderate atherosclerotic changes without aneurysm. PERITONEUM/RETROPERITONEUM: No free air or fluid LYMPH NODES: No lymphadenopathy REPRODUCTIVE ORGANS: Unremarkable BLADDER: Unremarkable SOFT TISSUES: Unremarkable BONES: No suspicious bone lesions. IMPRESSION: No acute findings to explain patient's epigastric pain. Signed by: Dr. Vicki Arcos M.D. on 03/18/2018 5:29 AM
== END 2018-03-18 05:45 | disposition home or self-care (01) ==
LOC: ER 02:53
DX: R10.13 Epigastric pain (principal); R11.0 Nausea; K21.0 Gastro-esophageal reflux disease with esophagitis
CPT/HCPCS: 36415; 71046; 74177; 80053; 82550; 82553; 84484; 85025; 85610; 85730; 93005; 96374; 96375; 99284; J2405; J7040; Q9967

== ENCOUNTER 2019-02-23 05:19 | Emergency (ER) | payer MEDICARE ==
[~2019-02-23] VITALS: Ht 154.9 cm; Wt 51.3 kg
[~2019-02-23 05:19] MED LIST changes: +FLUTICASONE PRO16 GM; +PANTOPRAZOLE SO40 MG PO; +ZOFRAN ODT4 MG SL
[2019-02-23] MEDS ORDERED: ONDANSETRON HCL 4 MG ORAL DISINTEGRATING TAB PO ONE (05:45)
[2019-02-23] MEDS ORDERED: BELLADONNA ALK/PHENOBARBITAL 5 ML UDC PO SCH (05:45)
[2019-02-23] MEDS ORDERED: MAGNESIUM/ALUMINUM/SIMETHICONE 30 ML UDC PO ONE (05:45)
[2019-02-23] MEDS ORDERED: SODIUM CHLORIDE 0.9% 500ML 500 ML IV ONE (06:00)
[2019-02-23 06:24] LABS: BILIRUBIN,URINE NEGATIVE (NEGATIVE); CLARITY,URINE CLEAR (CLEAR); COLOR,URINE YELLOW (YELLOW); KETONES,URINE TRACE (NEGATIVE); LEUKOCYTE ESTERASE ,URINE NEGATIVE (NEGATIVE); NITRITE,URINE NEGATIVE (NEGATIVE); PROTEIN,URINE DIPSTICK NEGATIVE (NEGATIVE); URINE UROBILINOGEN 0.2 mg/dL (0.2 - 1)
[2019-02-23 06:25] LABS: HEMATOCRIT 37.9 % (34.2-44.1); HEMOGLOBIN 12.4 g/dL (12.0-16.0); LYMPHOCYTES # (AUTO) 0.6 (1.0-3.2); LYMPHOCYTES % 20.8 % (18.0-39.1); MEAN CORPUSCULAR HEMOGLOBIN 30.2 pg (28-32); MEAN CORPUSCULAR HGB CONC 32.7 g/dL (31-35); MEAN CORPUSCULAR VOLUME 92.4 fL (81-99); MONOCYTES # (AUTO) 0.1 (0.2-0.8); MONOCYTES % 3.8 % (4.4-11.3); NEUTROPHILS % 74.6 % (38.7-80.0); PLATELET COUNT 108 x10e3/uL (140-360); RED CELL DISTRIBUTION WIDTH 14.5 % (11.7-14.4)
[2019-02-23 06:33] LABS: BACTERIA,URINE RARE /HPF; RBC,URINE 0-5 /HPF (0-5); WBC,URINE (MAN) 0-5 /HPF (0-5)
[2019-02-23 06:34] LABS: EPITHELIAL CELLS,URINE FEW /LPF
[2019-02-23 06:37] LABS: INR 0.88; PROTHROMBIN TIME 12.4 seconds (11.9-14.5)
[2019-02-23 06:38] LABS: PARTIAL THROMBOPLASTIN TIME 29.7 seconds (23.8-35.5)
[2019-02-23 06:46] LABS: ALANINE AMINOTRANSFERASE 11 IU/L (0-55); ALBUMIN 4.2 g/dL (3.5-5.0); ALKALINE PHOSPHATASE 82 IU/L (40-150); ANION GAP 14.7 mmol/L (8-16); BLOOD UREA NITROGEN 10 mg/dL (7-26); BUN/CREATININE RATIO 12 (6-25); CARBON DIOXIDE 27 mmol/L (22-29); CHLORIDE 100 mmol/L (98-107); CREATINE KINASE 67 IU/L (29-168); CREATININE, SERUM 0.84 mg/dL (0.57-1.11); EST GLOMERULAR FILTRATION RATE > 60 ML/MIN (60-); GLUCOSE 136 mg/dL (74-118); POTASSIUM 3.7 mmol/L (3.5-5.1); SODIUM 138 mmol/L (136-145)
[2019-02-23 07:10] VITALS: BP 144/55
[2019-02-23 07:37] LABS: PLATELET ESTIMATE MODERATELY DECREASED
[2019-02-23 07:38] LABS: PLATELET MORPHOLOGY COMMENT FEW LARGE; RBC MORPHOLOGY COMMENT NORMAL
== END 2019-02-23 07:18 | disposition home or self-care (01) ==
LOC: ER 05:19
DX: R11.0 Nausea (principal); D72.819 Decreased white blood cell count, unspecified; I10 Essential (primary) hypertension; K21.9 Gastro-esophageal reflux disease without esophagitis; F32.9 Major depressive disorder, single episode, unspecified
CPT/HCPCS: 36415; 80053; 81001; 82550; 82553; 84484; 85025; 85610; 85730; 87086; 93005; 99284; J7040; Q0162

== ENCOUNTER 2019-02-24 21:19 | Emergency (ER) | payer MEDICARE ==
[~2019-02-24] VITALS: Ht 154.9 cm; Wt 51.3 kg
[2019-02-24 21:58] VITALS: BP 175/74
[2019-02-24] MEDS ORDERED: TRAMADOL HCL 50 MG TAB PO ONE (22:00)
== END 2019-02-24 22:05 | disposition home or self-care (01) ==
LOC: ER 21:19
DX: S16.1XXA Strain of muscle, fascia and tendon at neck level, initial encounter (principal); I10 Essential (primary) hypertension; E78.5 Hyperlipidemia, unspecified; K21.9 Gastro-esophageal reflux disease without esophagitis
CPT/HCPCS: 93005; 99282

== ENCOUNTER 2021-02-11 13:22 | Emergency (ER) | payer MEDICARE ==
[~2021-02-11] VITALS: Ht 154.9 cm; Wt 47.6 kg
[2021-02-11] MEDS ORDERED: SODIUM CHLORIDE 0.9% 500ML 500 ML IV STA (13:36)
[2021-02-11] MEDS ORDERED: SODIUM CHLORIDE 0.9% 500ML 500 ML ONE (13:54)
[2021-02-11] MEDS ORDERED: SODIUM CHLORIDE 0.9% 50ML 50 ML ONE (14:13)
[2021-02-11] MEDS ORDERED: IOPAMIDOL 370 MG/ML 200 ML INFUS..BTL INJ ONE (14:14)
[2021-02-11 15:51] VITALS: BP 162/62
== END 2021-02-11 15:55 | disposition home or self-care (01) ==
LOC: FSED 13:36
DX: I16.0 Hypertensive urgency (principal); R42 Dizziness and giddiness; K21.9 Gastro-esophageal reflux disease without esophagitis; E78.5 Hyperlipidemia, unspecified
CPT/HCPCS: 70496; 80048; 81003; 84484; 85025; 85379; 93005; 99284; J7040; Q9967

== ENCOUNTER 2021-10-20 10:08 | Emergency (ER) | payer MEDICARE ==
[~2021-10-20] VITALS: Ht 152.4 cm; Wt 49.4 kg
[2021-10-20 13:40] VITALS: BP 189/74
== END 2021-10-20 12:58 | disposition short-term general hospital (02) ==
LOC: FSED 10:42
DX: R47.81 Slurred speech (principal); I63.9 Cerebral infarction, unspecified; E78.5 Hyperlipidemia, unspecified; K21.9 Gastro-esophageal reflux disease without esophagitis; R94.31 Abnormal electrocardiogram [ECG] [EKG]
CPT/HCPCS: 70450; 80053; 82553; 84484; 85025; 85610; 93005; 99284

== ENCOUNTER 2022-02-20 05:49 | Emergency (ER) | payer MEDICARE ==
[~2022-02-20] VITALS: Ht 154.9 cm; Wt 49.4 kg
[2022-02-20 06:14] LABS: BASOPHILS % 0.4 % (0.0-1.0); EOSINOPHILS % 0.7 % (0.0-6.0); HEMOGLOBIN 10.6 g/dL (12.0-16.0); LYMPHOCYTES # (AUTO) 1.7 (1.0-3.2); LYMPHOCYTES % 61.3 % (18.0-39.1); MEAN CORPUSCULAR HEMOGLOBIN 30.9 pg (28-32); MEAN CORPUSCULAR HGB CONC 31.2 g/dL (31-35); MEAN CORPUSCULAR VOLUME 99.1 fL (81-99); MONOCYTES # (AUTO) 0.2 (0.2-0.8); MONOCYTES % 5.7 % (4.4-11.3); NEUTROPHILS # (AUTO) 0.9 (2.1-6.9); NEUTROPHILS % 31.9 % (38.7-80.0); PLATELET COUNT 101 x10e3/uL (140-360); RED BLOOD COUNT 3.43 x10e6/uL (3.6-5.1); RED CELL DISTRIBUTION WIDTH 14.1 % (11.7-14.4)
[2022-02-20] MEDS ORDERED: SODIUM CHLORIDE 0.9% 1000ML 1,000 ML IV STA (06:22)
[2022-02-20 06:28] LABS: ALANINE AMINOTRANSFERASE 9 IU/L (0-55); ALBUMIN 3.7 g/dL (3.5-5.0); ALKALINE PHOSPHATASE 62 IU/L (40-150); ANION GAP 14.3 mmol/L (8-16); BLOOD UREA NITROGEN 15 mg/dL (7-26); BUN/CREATININE RATIO 17 (6-25); CALCIUM 8.9 mg/dL (8.4-10.2); CARBON DIOXIDE 26 mmol/L (22-29); CHLORIDE 105 mmol/L (98-107); CREATINE KINASE 32 IU/L (29-168); CREATININE, SERUM 0.86 mg/dL (0.57-1.11); GLUCOSE 91 mg/dL (74-118); MAGNESIUM 2.3 MG/DL (1.3-2.1); POTASSIUM 4.3 mmol/L (3.5-5.1); SODIUM 141 mmol/L (136-145)
[2022-02-20 06:36] LABS: INR 0.89; PROTHROMBIN TIME 12.9 seconds (11.9-14.5)
[2022-02-20] MEDS ORDERED: SODIUM CHLORIDE 0.9% 1000ML 1,000 ML ONE (06:36)
[2022-02-20 06:37] LABS: PARTIAL THROMBOPLASTIN TIME 26.1 seconds (23.8-35.5)
[2022-02-20 06:54] LABS: CLARITY,URINE SL CLOUDY (CLEAR); COLOR,URINE YELLOW (YELLOW); KETONES,URINE TRACE (NEGATIVE); LEUKOCYTE ESTERASE ,URINE SMALL (NEGATIVE); NITRITE,URINE NEGATIVE (NEGATIVE); PROTEIN,URINE DIPSTICK NEGATIVE (NEGATIVE); URINE UROBILINOGEN 1 mg/dL (0.2 - 1)
[2022-02-20 07:06] LABS: BACTERIA,URINE MODERATE /HPF; EPITHELIAL CELLS,URINE FEW /LPF; MUCUS,URINE MODERATE (RARE); RBC,URINE 0-5 /HPF (0-5); WBC,URINE (MAN) 21-50 /HPF (0-5)
[2022-02-20] MEDS ORDERED: CEFUROXIME250 MG PO (08:39)
[2022-02-20 09:09] LABS: RESPIRATORY SYNC. VIRUS POSITIVE (NEGATIVE)
[2022-02-20] MEDS ORDERED: MIRTAZAPINE15 MG PO (20:18)
[2022-02-20] MEDS ORDERED: LISINOPRIL10 MG (20:18)
[2022-02-20] MEDS ORDERED: CELEBREX200 MG PO (20:18)
[2022-02-20] MEDS ORDERED: FAMOTIDINE20 MG (20:18)
[2022-02-20] MEDS ORDERED: ASPIRIN81 MG PO (20:45)
[2022-02-20] MEDS ORDERED: METOPROLOL SUCC25 MG (20:45)
[2022-02-20] MEDS ORDERED: VITAMIN D3-ALO1 EACH (20:45)
[2022-02-20] MEDS ORDERED: VITAMIN B122500 MCG (20:45)
[2022-02-20] MEDS ORDERED: ATORVASTATIN CA20 MG PO (20:45)
== END 2022-02-20 08:58 | disposition home or self-care (01) ==
LOC: ER 06:00
DX: R42 Dizziness and giddiness (principal); I10 Essential (primary) hypertension; Z86.73 Personal history of transient ischemic attack (TIA), and cerebral infarction without residual deficits; F41.9 Anxiety disorder, unspecified; K21.9 Gastro-esophageal reflux disease without esophagitis; E78.5 Hyperlipidemia, unspecified; Z20.822 Contact with and (suspected) exposure to COVID-19
CPT/HCPCS: 36415; 70450; 71045; 80053; 81001; 82550; 82553; 83735; 83880; 84484; 85025; 85610; 85651; 85730; 87086; 87400; 87420; 93005; 99284; J0696; J7030

== ENCOUNTER 2022-02-20 16:15 | Inpatient (IN) | payer MEDICARE ==
[~2022-02-20] VITALS: Ht 172.7 cm; Wt 49.9 kg
[~2022-02-20 16:15] MED LIST changes: +CEFUROXIME250 MG PO
[2022-02-20 16:57] LABS: CREATINE KINASE 32 IU/L (29-168)
[2022-02-20] MEDS ORDERED: ONDANSETRON HCL INJ 2MG/ML 2ML 2 MG/ML VIAL IV PRN (17:15)
[2022-02-20] MEDS: FAMOTIDINE 20 MG/2 ML VIAL IV SCH (17:22)
[2022-02-20] MEDS: SODIUM CHLORIDE 0.9% 1000ML 1,000 ML IV SCH (17:22)
[2022-02-20 18:22] VITALS: BP 132/46
[2022-02-20 20:04] VITALS: BP 134/51
[2022-02-20] MEDS ORDERED: LISINOPRIL10 MG (20:18)
[2022-02-20] MEDS ORDERED: CELEBREX200 MG PO (20:18)
[2022-02-20] MEDS ORDERED: MIRTAZAPINE15 MG PO (20:18)
[2022-02-20] MEDS ORDERED: FAMOTIDINE20 MG (20:18)
[2022-02-20 20:24] VITALS: BP 134/51
[2022-02-20 20:31] VITALS: BP 139/51
[2022-02-20] MEDS ORDERED: VITAMIN D3-ALO1 EACH (20:45)
[2022-02-20] MEDS ORDERED: ATORVASTATIN CA20 MG PO (20:45)
[2022-02-20] MEDS ORDERED: VITAMIN B122500 MCG (20:45)
[2022-02-20] MEDS ORDERED: METOPROLOL SUCC25 MG (20:45)
[2022-02-20] MEDS ORDERED: ASPIRIN81 MG PO (20:45)
[2022-02-20] MEDS ORDERED: ATORVASTATIN 20 MG TAB PO SCH (21:00)
[2022-02-20] MEDS: MIRTAZAPINE 15 MG TAB PO SCH (21:03)
[2022-02-21] VITALS (8 sets, daily range): BP systolic 118–164; BP diastolic 48–55
[2022-02-21] MEDS: FAMOTIDINE 20 MG/2 ML VIAL IV SCH (04:45)
[2022-02-21] MEDS: SODIUM CHLORIDE 0.9% 1000ML 1,000 ML IV SCH ×2 (04:45→08:08)
[2022-02-21 06:19] LABS: EOSINOPHILS % 0.9 % (0.0-6.0); HEMATOCRIT 29.2 % (34.2-44.1); HEMOGLOBIN 8.7 g/dL (12.0-16.0); LYMPHOCYTES # (AUTO) 1.3 (1.0-3.2); LYMPHOCYTES % 60.2 % (18.0-39.1); MEAN CORPUSCULAR HEMOGLOBIN 30.3 pg (28-32); MEAN CORPUSCULAR HGB CONC 29.8 g/dL (31-35); MEAN CORPUSCULAR VOLUME 101.7 fL (81-99); MONOCYTES # (AUTO) 0.1 (0.2-0.8); MONOCYTES % 6.5 % (4.4-11.3); NEUTROPHILS # (AUTO) 0.7 (2.1-6.9); NEUTROPHILS % 32.4 % (38.7-80.0); PLATELET COUNT 88 x10e3/uL (140-360); RED BLOOD COUNT 2.87 x10e6/uL (3.6-5.1); RED CELL DISTRIBUTION WIDTH 14.1 % (11.7-14.4)
[2022-02-21 06:39] LABS: ALBUMIN 2.9 g/dL (3.5-5.0); ALBUMIN/GLOBULIN RATIO 1.1 (0.8-2.0); ANION GAP 12.8 mmol/L (8-16); CALCIUM 8.1 mg/dL (8.4-10.2); CREATINE KINASE 27 IU/L (29-168); CREATININE, SERUM 0.7 mg/dL (0.57-1.11); POTASSIUM 3.8 mmol/L (3.5-5.1)
[2022-02-21] MEDS ORDERED: ASPIRIN 81 MG CHEW TAB PO ONE (09:00)
[2022-02-21] MEDS ORDERED: ALBUTEROL/IPRATROPIUM 3 ML NEB NEB PRN (11:30)
[2022-02-21 15:46] LABS: CREATINE KINASE MB 0.9 ng/mL (0-5.0)
[2022-02-21] MEDS: FAMOTIDINE 20 MG TAB PO SCH (16:49)
[2022-02-21] MEDS ORDERED: ACETAMINOPHEN 325 MG TAB PO PRN (19:00)
[2022-02-21] MEDS ORDERED: ATORVASTATIN 20 MG TAB PO SCH (21:00)
[2022-02-21] MEDS: MIRTAZAPINE 15 MG TAB PO SCH (21:08)
[2022-02-22 00:45] VITALS: BP 121/43
[2022-02-22 04:00] VITALS: BP 142/51
[2022-02-22] MEDS: SODIUM CHLORIDE 0.9% 1000ML 1,000 ML IV SCH ×2 (04:00→07:00)
[2022-02-22 05:58] LABS: BASOPHILS % 0.4 % (0.0-1.0); EOSINOPHILS % 1.6 % (0.0-6.0); HEMATOCRIT 30.3 % (34.2-44.1); HEMOGLOBIN 9.2 g/dL (12.0-16.0); LYMPHOCYTES # (AUTO) 1.3 (1.0-3.2); LYMPHOCYTES % 51.2 % (18.0-39.1); MEAN CORPUSCULAR HEMOGLOBIN 30.4 pg (28-32); MEAN CORPUSCULAR HGB CONC 30.4 g/dL (31-35); MONOCYTES # (AUTO) 0.2 (0.2-0.8); MONOCYTES % 6.6 % (4.4-11.3); NEUTROPHILS % 39.8 % (38.7-80.0); PLATELET COUNT 75 x10e3/uL (140-360); RED BLOOD COUNT 3.03 x10e6/uL (3.6-5.1); RED CELL DISTRIBUTION WIDTH 13.9 % (11.7-14.4)
[2022-02-22 06:26] LABS: ALBUMIN 3.1 g/dL (3.5-5.0); ALBUMIN/GLOBULIN RATIO 1.1 (0.8-2.0); ANION GAP 11.4 mmol/L (8-16); CALCIUM 8.7 mg/dL (8.4-10.2); CHOL/HDL RATIO 2.7 (3.0-3.6); CREATININE, SERUM 0.72 mg/dL (0.57-1.11); POTASSIUM 3.4 mmol/L (3.5-5.1)
[2022-02-22 07:23] LABS: CREATINE KINASE 30 IU/L (29-168)
[2022-02-22] MEDS: FAMOTIDINE 20 MG TAB PO SCH (08:27)
[2022-02-22 08:45] VITALS: BP 130/84
[2022-02-22 08:47] VITALS: BP 154/60
[2022-02-22 08:49] VITALS: BP_SYST 130; BP_SYST 154; BP_DIAS 60; BP_DIAS 84
[2022-02-22] MEDS ORDERED: ASPIRIN 81 MG CHEW TAB PO SCH (09:00)
[2022-02-22 11:46] VITALS: BP 154/54
[2022-02-22] MEDS ORDERED: POTASSIUM CHLORIDE 20 MEQ TAB CR PO ONE (12:30)
[2022-02-22] MEDS ORDERED: LIPITOR20 MG PO (12:39)
== END 2022-02-22 14:00 | disposition home or self-care (01) | DRG 690 ==
LOC: ER 16:20 → ERHOLD 17:07 → MED/SURG3 18:06 → OBSVTOIN 02-21 11:03
PROVIDERS: ADMIT Internal Medicine; ATTEND Internal Medicine
DX: N39.0 Urinary tract infection, site not specified (principal); D61.818 Other pancytopenia; J44.9 Chronic obstructive pulmonary disease, unspecified; R91.1 Solitary pulmonary nodule; B33.8 Other specified viral diseases; R55 Syncope and collapse; B97.4 Respiratory syncytial virus as the cause of diseases classified elsewhere; D64.9 Anemia, unspecified; D69.6 Thrombocytopenia, unspecified; Z86.73 Personal history of transient ischemic attack (TIA), and cerebral infarction without residual deficits; R00.1 Bradycardia, unspecified; R91.8 Other nonspecific abnormal finding of lung field; I25.10 Atherosclerotic heart disease of native coronary artery without angina pectoris; E04.1 Nontoxic single thyroid nodule; E78.5 Hyperlipidemia, unspecified; Z20.822 Contact with and (suspected) exposure to COVID-19; F41.8 Other specified anxiety disorders
CPT/HCPCS: 36415; 71250; 80053; 80061; 82550; 82553; 84484; 85025; 87086; 93005; 94799; 99284; G0378; J0696; J7030

== ENCOUNTER 2022-03-31 12:37 | Emergency (ER) | payer MEDICARE ==
[~2022-03-31] VITALS: Ht 172.7 cm; Wt 49.9 kg
[~2022-03-31 12:37] MED LIST changes: +ASPIRIN81 MG PO; +ATORVASTATIN CA20 MG PO; +CELEBREX200 MG PO; +FAMOTIDINE20 MG; +LIPITOR20 MG PO; +LISINOPRIL10 MG; +METOPROLOL SUCC25 MG; +MIRTAZAPINE15 MG PO; +VITAMIN B122500 MCG; +VITAMIN D3-ALO1 EACH
[2022-03-31 13:34] LABS: EOSINOPHILS % 0.3 % (0.0-6.0); HEMATOCRIT 38.6 % (34.2-44.1); HEMOGLOBIN 11.6 g/dL (12.0-16.0); LYMPHOCYTES # (AUTO) 1.6 (1.0-3.2); LYMPHOCYTES % 43.9 % (18.0-39.1); MEAN CORPUSCULAR HEMOGLOBIN 30.4 pg (28-32); MEAN CORPUSCULAR HGB CONC 30.1 g/dL (31-35); MONOCYTES # (AUTO) 0.2 (0.2-0.8); MONOCYTES % 5.6 % (4.4-11.3); NEUTROPHILS # (AUTO) 1.8 (2.1-6.9); NEUTROPHILS % 49.9 % (38.7-80.0); PLATELET COUNT 126 x10e3/uL (140-360); RED BLOOD COUNT 3.82 x10e6/uL (3.6-5.1); RED CELL DISTRIBUTION WIDTH 14.5 % (11.7-14.4)
[2022-03-31 13:44] LABS: CLARITY,URINE CLEAR (CLEAR); COLOR,URINE YELLOW (YELLOW); KETONES,URINE NEGATIVE (NEGATIVE); LEUKOCYTE ESTERASE ,URINE SMALL (NEGATIVE); NITRITE,URINE NEGATIVE (NEGATIVE); PROTEIN,URINE DIPSTICK NEGATIVE (NEGATIVE); URINE UROBILINOGEN 0.2 mg/dL (0.2 - 1)
[2022-03-31 13:46] LABS: INR 0.89; PROTHROMBIN TIME 12.9 seconds (11.9-14.5)
[2022-03-31 13:47] LABS: PARTIAL THROMBOPLASTIN TIME 27.2 seconds (23.8-35.5)
[2022-03-31 13:54] LABS: ALBUMIN 4.1 g/dL (3.5-5.0); ALBUMIN/GLOBULIN RATIO 1.2 (0.8-2.0); ANION GAP 13.9 mmol/L (8-16); CALCIUM 9.2 mg/dL (8.4-10.2); CREATININE, SERUM 0.95 mg/dL (0.57-1.11); MAGNESIUM 2.2 MG/DL (1.3-2.1); POTASSIUM 3.9 mmol/L (3.5-5.1)
[2022-03-31 14:08] LABS: CREATINE KINASE MB 0.6 ng/mL (0-5.0)
[2022-03-31 14:15] LABS: BACTERIA,URINE FEW /HPF
[2022-03-31 14:16] LABS: EPITHELIAL CELLS,URINE RARE /LPF
[2022-03-31] MEDS ORDERED: CEFDINIR300 MG PO (14:50)
[2022-03-31 15:07] VITALS: BP 129/48
== END 2022-03-31 15:12 | disposition home or self-care (01) ==
LOC: ER 12:48
DX: R42 Dizziness and giddiness (principal); R00.1 Bradycardia, unspecified; N39.0 Urinary tract infection, site not specified; I10 Essential (primary) hypertension; E78.5 Hyperlipidemia, unspecified; K21.9 Gastro-esophageal reflux disease without esophagitis; Z86.73 Personal history of transient ischemic attack (TIA), and cerebral infarction without residual deficits
CPT/HCPCS: 36415; 71045; 80053; 81001; 82550; 82553; 83735; 83880; 84484; 85025; 85610; 85730; 93005; 99284

== ENCOUNTER 2022-05-25 20:18 | Emergency (ER) | payer MEDICARE ==
[~2022-05-25] VITALS: Ht 160 cm; Wt 44.5 kg
[~2022-05-25 20:18] MED LIST changes: +ALBUTEROL2.5 MG/3 M INH; +CEFDINIR300 MG PO; +COMPRESSOR NEB1 EACH INH; -FAMOTIDINE20 MG; +FAMOTIDINE20 MG PO; -LISINOPRIL10 MG; +LISINOPRIL10 MG PO; +PROVENTIL HFA6.7 GM INH
[2022-05-25] MEDS ORDERED: PROAIR DIGIHAL90 MCG INH (23:17)
[2022-05-25] MEDS ORDERED: CEFDINIR300 MG PO (23:17)
[2022-05-25] MEDS ORDERED: ALBUTEROL2.5 MG/3 M INH (23:17)
== END 2022-05-25 23:41 | disposition home or self-care (01) ==
LOC: FSED 20:23
DX: U07.1 COVID-19 (principal); M54.89 Other dorsalgia; N39.0 Urinary tract infection, site not specified; D72.819 Decreased white blood cell count, unspecified; D64.9 Anemia, unspecified; D69.6 Thrombocytopenia, unspecified; R53.1 Weakness; I10 Essential (primary) hypertension; E78.5 Hyperlipidemia, unspecified; K21.9 Gastro-esophageal reflux disease without esophagitis; M19.90 Unspecified osteoarthritis, unspecified site; Z79.82 Long term (current) use of aspirin; Z79.899 Other long term (current) drug therapy; Z86.73 Personal history of transient ischemic attack (TIA), and cerebral infarction without residual deficits
CPT/HCPCS: 70450; 71046; 72070; 72100; 80053; 81003; 82553; 84484; 85025; 93005; 99284; U0002

== ENCOUNTER 2022-05-31 20:01 | Inpatient (IN) | payer MEDICARE ==
[~2022-05-31] VITALS: Ht 152.4 cm; Wt 41.7 kg
[~2022-05-31 20:01] MED LIST changes: +PROAIR DIGIHAL90 MCG INH
[2022-05-31 20:52] LABS: HEMOGLOBIN 9.7 g/dL (12.0-16.0); LYMPHOCYTES # (AUTO) 0.6 (1.0-3.2); LYMPHOCYTES % 49.6 % (18.0-39.1); MEAN CORPUSCULAR HEMOGLOBIN 29.8 pg (28-32); MEAN CORPUSCULAR HGB CONC 29.4 g/dL (31-35); MEAN CORPUSCULAR VOLUME 101.2 fL (81-99); MONOCYTES # (AUTO) 0.1 (0.2-0.8); NEUTROPHILS # (AUTO) 0.4 (2.1-6.9); NEUTROPHILS % 37.5 % (38.7-80.0); PLATELET COUNT 89 x10e3/uL (140-360); RED BLOOD COUNT 3.26 x10e6/uL (3.6-5.1); RED CELL DISTRIBUTION WIDTH 14.6 % (11.7-14.4)
[2022-05-31 21:07] LABS: CLARITY,URINE CLEAR (CLEAR); COLOR,URINE YELLOW (YELLOW); KETONES,URINE 2+ (NEGATIVE); LEUKOCYTE ESTERASE ,URINE TRACE (NEGATIVE); NITRITE,URINE POSITIVE (NEGATIVE); PROTEIN,URINE DIPSTICK NEGATIVE (NEGATIVE); URINE UROBILINOGEN 0.2 mg/dL (0.2 - 1)
[2022-05-31 21:10] LABS: ALBUMIN 3.5 g/dL (3.5-5.0); ALBUMIN/GLOBULIN RATIO 0.9 (0.8-2.0); CALCIUM 8.8 mg/dL (8.4-10.2); CREATININE, SERUM 0.78 mg/dL (0.57-1.11)
[2022-05-31 21:15] LABS: BACTERIA,URINE MODERATE /HPF; RBC,URINE 0-5 /HPF (0-5); WBC,URINE (MAN) 0-5 /HPF (0-5)
[2022-05-31 21:24] LABS: ELLIPTOCYTE, RBC MODERATE; LYMPHOCYTES % (MANUAL) 40 % (19-48); MONOCYTES % (MANUAL) 14 % (3.4-9.0); NEUTROPHILS % (MANUAL) 40 % (40-74)
[2022-05-31 21:26] LABS: PLATELET ESTIMATE MODERATELY DECREASED; PLATELET MORPHOLOGY COMMENT NORMAL; RBC MORPHOLOGY COMMENT ABNORMAL
[2022-05-31] MEDS ORDERED: SODIUM CHLORIDE FLUSH 10 ML SYR INJ PRN (22:15)
[2022-06-01] VITALS (8 sets, daily range): BP systolic 115–155; BP diastolic 49–62
[2022-06-01 06:29] LABS: EOSINOPHILS % 0.7 % (0.0-6.0); HEMATOCRIT 29.3 % (34.2-44.1); HEMOGLOBIN 8.6 g/dL (12.0-16.0); LYMPHOCYTES # (AUTO) 0.8 (1.0-3.2); LYMPHOCYTES % 54.7 % (18.0-39.1); MEAN CORPUSCULAR HEMOGLOBIN 29.7 pg (28-32); MEAN CORPUSCULAR HGB CONC 29.4 g/dL (31-35); MONOCYTES # (AUTO) 0.2 (0.2-0.8); MONOCYTES % 12.9 % (4.4-11.3); NEUTROPHILS # (AUTO) 0.4 (2.1-6.9); NEUTROPHILS % 31.7 % (38.7-80.0); PLATELET COUNT 81 x10e3/uL (140-360); RED CELL DISTRIBUTION WIDTH 14.6 % (11.7-14.4)
[2022-06-01 06:46] LABS: ALBUMIN/GLOBULIN RATIO 0.9 (0.8-2.0); ANION GAP 15.9 mmol/L (8-16); CALCIUM 8.3 mg/dL (8.4-10.2); CREATININE, SERUM 0.74 mg/dL (0.57-1.11); POTASSIUM 3.9 mmol/L (3.5-5.1)
[2022-06-01 08:32] LABS: EOSINOPHILS % (MANUAL) 1 % (0-7); LYMPHOCYTES % (MANUAL) 58 % (19-48); MONOCYTES % (MANUAL) 9 % (3.4-9.0); NEUTROPHILS % (MANUAL) 28 % (40-74)
[2022-06-01 08:34] LABS: ANISOCYTOSIS MODERATE; ELLIPTOCYTE, RBC SLIGHT; HYPOCHROMASIA MODERATE; OVALOCYTES MODERATE; PLATELET ESTIMATE MODERATELY DECREASED; PLATELET MORPHOLOGY COMMENT NORMAL; RBC MORPHOLOGY COMMENT ABNORMAL
[2022-06-01] MEDS ORDERED: HYDRALAZINE HCL 20 MG/ML VIAL IV PRN (16:45)
[2022-06-01] MEDS ORDERED: POLYETHYLENE GLYCOL 3350 17 GM PACK PO PRN (16:45)
[2022-06-01] MEDS ORDERED: ACETAMINOPHEN 325 MG TAB PO PRN (16:45)
[2022-06-01] MEDS: SODIUM CHLORIDE 0.9% 1000ML 1,000 ML IV SCH (17:12)
[2022-06-01] MEDS ORDERED: CELECOXIB 200 MG CAP PO PRN (17:15)
[2022-06-01] MEDS ORDERED: MIRTAZAPINE 15 MG TAB PO PRN (17:15)
[2022-06-01] MEDS ORDERED: ALBUTEROL SULF 0.083% NEB SOLN 3 ML NEB INH PRN (17:15)
[2022-06-01] MEDS ORDERED: ALBUTEROL SULFATE HFA 8GM INHALATION AEROSOL INH PRN (17:15)
[2022-06-01] MEDS: ONDANSETRON HCL INJ 2MG/ML 2ML 2 MG/ML VIAL IV PRN (17:50)
[2022-06-01] MEDS: ENOXAPARIN 30 MG/0.3 ML SYR SC SCH (17:51)
[2022-06-01] MEDS: CHOLECALCIFEROL 400 UNIT TAB PO SCH (17:52)
[2022-06-01] MEDS: ZINC SULFATE 50 MG CAP PO SCH (17:52)
[2022-06-01] MEDS: ASCORBIC ACID 500 MG TAB PO SCH (17:52)
[2022-06-01] MEDS: ALBUTEROL SULFATE INH SCH (18:00)
[2022-06-01] MEDS: ALBUTEROL SULF 0.083% NEB SOLN 3 ML NEB INH SCH (20:50)
[2022-06-01] MEDS: ATORVASTATIN 40 MG TAB PO SCH (20:51)
[2022-06-01] MEDS ORDERED: ONDANSETRON HCL INJ 2MG/ML 2ML 2 MG/ML VIAL IV STA (21:16)
[2022-06-01] MEDS ORDERED: PROMETHAZINE 12.5MG/ NACL 0.9% 12.5 MG/50 ML BAG IV PRN (21:30)
[2022-06-02] VITALS (8 sets, daily range): BP systolic 119–148; BP diastolic 45–64
[2022-06-02 00:35] LABS: % IRON SATURATION 17 % (15-50); IRON 45 ug/dL (50-170); TOTAL IRON BINDING CAPACITY 265 ug/dL (261-478); TRANSFERRIN 189 mg/dL (180-382)
[2022-06-02] MEDS: ALBUTEROL SULF 0.083% NEB SOLN 3 ML NEB INH SCH ×4 (01:00→21:00)
[2022-06-02] MEDS: SODIUM CHLORIDE 0.9% 1000ML 1,000 ML IV SCH (05:35)
[2022-06-02] MEDS: METOCLOPRAMIDE HCL 10 MG/2ML VIAL IV SCH ×3 (05:35→17:43)
[2022-06-02] MEDS: ALBUTEROL SULFATE INH SCH ×4 (06:00→18:00)
[2022-06-02 06:19] LABS: HEMATOCRIT 25.6 % (34.2-44.1); HEMOGLOBIN 8.1 g/dL (12.0-16.0); LYMPHOCYTES # (AUTO) 0.8 (1.0-3.2); LYMPHOCYTES % 58.3 % (18.0-39.1); MEAN CORPUSCULAR HEMOGLOBIN 30.2 pg (28-32); MEAN CORPUSCULAR HGB CONC 31.6 g/dL (31-35); MONOCYTES # (AUTO) 0.2 (0.2-0.8); MONOCYTES % 15.9 % (4.4-11.3); NEUTROPHILS # (AUTO) 0.3 (2.1-6.9); RED BLOOD COUNT 2.68 x10e6/uL (3.6-5.1)
[2022-06-02 06:24] LABS: MEAN CORPUSCULAR VOLUME 95.5 fL (81-99); PLATELET COUNT 74 x10e3/uL (140-360)
[2022-06-02] MEDS: ONDANSETRON HCL INJ 2MG/ML 2ML 2 MG/ML VIAL IV PRN ×2 (06:34→18:26)
[2022-06-02 06:58] LABS: ANION GAP 17.1 mmol/L (8-16); CREATININE, SERUM 0.74 mg/dL (0.57-1.11); POTASSIUM 4.1 mmol/L (3.5-5.1)
[2022-06-02 07:13] LABS: CHOL/HDL RATIO 3.1 (3.0-3.6); MAGNESIUM 1.9 MG/DL (1.3-2.1)
[2022-06-02 07:30] LABS: THYROID STIMULATING HORMONE 2.355 uIU/mL (0.350-4.940)
[2022-06-02] MEDS ORDERED: DEXTROSE 50% SYRINGE 50 ML IV PRN (07:30)
[2022-06-02 07:35] LABS: BAND NEUTROPHILS % (MANUAL) 1 %; LYMPHOCYTES % (MANUAL) 57 % (19-48); MONOCYTES % (MANUAL) 14 % (3.4-9.0); NEUTROPHILS % (MANUAL) 27 % (40-74)
[2022-06-02 07:36] LABS: ELLIPTOCYTE, RBC MODERATE; HYPOCHROMASIA SLIGHT; OVALOCYTES MODERATE; PLATELET ESTIMATE MODERATELY DECREASED; PLATELET MORPHOLOGY COMMENT NORMAL; RBC MORPHOLOGY COMMENT ABNORMAL
[2022-06-02] MEDS: ASCORBIC ACID 500 MG TAB PO SCH ×2 (07:53→16:31)
[2022-06-02] MEDS: ZINC SULFATE 50 MG CAP PO SCH ×2 (09:00→16:31)
[2022-06-02] MEDS ORDERED: ENOXAPARIN INJ 80 MG/0.8 ML SYR SC SCH (09:00)
[2022-06-02] MEDS ORDERED: CYANOCOBALAMIN INJ 1,000 MCG/ML VIAL IM SCH (09:00)
[2022-06-02] MEDS: DEXTROSE 5%/0.9% SOD CHL 1,000 ML IV SCH ×2 (09:30→22:04)
[2022-06-02] MEDS ORDERED: PROPOFOL IV EMULSION 10 MG/ML 20 ML VIAL ONE (12:31)
[2022-06-02] MEDS ORDERED: LIDOCAINE HCL 2% LOCAL INJ 5 ML SDV VIAL INJ ONE (12:31)
[2022-06-02] MEDS ORDERED: METOCLOPRAMIDE HCL 10 MG/2ML VIAL ONE (12:31)
[2022-06-02] MEDS ORDERED: POVIDONE IODINE 0.05% 0.05 % ML PO ONE (12:31)
[2022-06-02] MEDS ORDERED: ONDANSETRON HCL INJ 2MG/ML 2ML 2 MG/ML VIAL ONE (12:31)
[2022-06-02] MEDS: LISINOPRIL 10 MG TAB PO SCH (15:15)
[2022-06-02] MEDS: CHOLECALCIFEROL 400 UNIT TAB PO SCH (15:15)
[2022-06-02] MEDS: MULTIVITAMINS/MINERALS TAB PO SCH (15:16)
[2022-06-02] MEDS: ASPIRIN 81 MG CHEW TAB PO SCH (15:16)
[2022-06-02 15:47] LABS: INR 0.98; PROTHROMBIN TIME 13.2 seconds (11.9-14.5)
[2022-06-02] MEDS: ENOXAPARIN 30 MG/0.3 ML SYR SC SCH (16:32)
[2022-06-02] MEDS: ATORVASTATIN 40 MG TAB PO SCH (21:42)
[2022-06-03] VITALS (8 sets, daily range): BP systolic 106–144; BP diastolic 45–70
[2022-06-03] MEDS: ALBUTEROL SULF 0.083% NEB SOLN 3 ML NEB INH SCH ×4 (01:00→19:00)
[2022-06-03] MEDS: METOCLOPRAMIDE HCL 10 MG/2ML VIAL IV SCH ×5 (01:01→23:51)
[2022-06-03] MEDS: ONDANSETRON HCL INJ 2MG/ML 2ML 2 MG/ML VIAL IV PRN ×2 (02:27→20:51)
[2022-06-03 05:52] LABS: HEMATOCRIT 24.2 % (34.2-44.1); HEMOGLOBIN 7.2 g/dL (12.0-16.0); LYMPHOCYTES # (AUTO) 0.5 (1.0-3.2); LYMPHOCYTES % 24.2 % (18.0-39.1); MEAN CORPUSCULAR HEMOGLOBIN 29.8 pg (28-32); MEAN CORPUSCULAR HGB CONC 29.8 g/dL (31-35); MONOCYTES # (AUTO) 0.2 (0.2-0.8); MONOCYTES % 8.9 % (4.4-11.3); NEUTROPHILS # (AUTO) 1.3 (2.1-6.9); NEUTROPHILS % 66.4 % (38.7-80.0); PLATELET COUNT 63 x10e3/uL (140-360); RED BLOOD COUNT 2.42 x10e6/uL (3.6-5.1); RED CELL DISTRIBUTION WIDTH 14.4 % (11.7-14.4)
[2022-06-03] MEDS: ALBUTEROL SULFATE INH SCH ×4 (06:00→18:00)
[2022-06-03 07:49] LABS: BAND NEUTROPHILS % (MANUAL) 1 %; LYMPHOCYTES % (MANUAL) 25 % (19-48); MONOCYTES % (MANUAL) 3 % (3.4-9.0); NEUTROPHILS % (MANUAL) 71 % (40-74)
[2022-06-03 07:50] LABS: HYPOCHROMASIA SLIGHT; OVALOCYTES MODERATE; PLATELET ESTIMATE MODERATELY DECREASED; PLATELET MORPHOLOGY COMMENT NORMAL; RBC MORPHOLOGY COMMENT ABNORMAL
[2022-06-03] MEDS: ASPIRIN 81 MG CHEW TAB PO SCH (10:48)
[2022-06-03] MEDS: MULTIVITAMINS/MINERALS TAB PO SCH (10:49)
[2022-06-03] MEDS: ZINC SULFATE 50 MG CAP PO SCH ×2 (10:49→17:07)
[2022-06-03] MEDS: LISINOPRIL 10 MG TAB PO SCH (10:49)
[2022-06-03] MEDS: CHOLECALCIFEROL 400 UNIT TAB PO SCH (10:50)
[2022-06-03] MEDS: ASCORBIC ACID 500 MG TAB PO SCH ×2 (10:50→17:07)
[2022-06-03] MEDS: DEXTROSE 5%/0.9% SOD CHL 1,000 ML IV SCH (14:02)
[2022-06-03] MEDS: ENOXAPARIN 30 MG/0.3 ML SYR SC SCH (17:07)
[2022-06-03] MEDS: ATORVASTATIN 40 MG TAB PO SCH (20:46)
[2022-06-04] VITALS (7 sets, daily range): BP systolic 123–143; BP diastolic 47–79
[2022-06-04] MEDS: DEXTROSE 5%/0.9% SOD CHL 1,000 ML IV SCH ×2 (00:32→13:35)
[2022-06-04 05:10] LABS: EOSINOPHILS % 0.6 % (0.0-6.0); HEMATOCRIT 23.4 % (34.2-44.1); LYMPHOCYTES # (AUTO) 0.6 (1.0-3.2); LYMPHOCYTES % 38.3 % (18.0-39.1); MEAN CORPUSCULAR HEMOGLOBIN 29.7 pg (28-32); MEAN CORPUSCULAR HGB CONC 29.9 g/dL (31-35); MEAN CORPUSCULAR VOLUME 99.2 fL (81-99); MONOCYTES # (AUTO) 0.1 (0.2-0.8); MONOCYTES % 8.6 % (4.4-11.3); NEUTROPHILS # (AUTO) 0.8 (2.1-6.9); NEUTROPHILS % 51.9 % (38.7-80.0); PLATELET COUNT 55 x10e3/uL (140-360); RED BLOOD COUNT 2.36 x10e6/uL (3.6-5.1); RED CELL DISTRIBUTION WIDTH 14.4 % (11.7-14.4)
[2022-06-04] MEDS: ALBUTEROL SULFATE INH SCH ×4 (05:41→17:37)
[2022-06-04 06:15] LABS: EOSINOPHILS % (MANUAL) 1 % (0-7); LYMPHOCYTES % (MANUAL) 29 % (19-48); MONOCYTES % (MANUAL) 4 % (3.4-9.0); NEUTROPHILS % (MANUAL) 62 % (40-74)
[2022-06-04 06:17] LABS: ANISOCYTOSIS SLIGHT; OVALOCYTES MODERATE; PLATELET ESTIMATE MODERATELY DECREASED; PLATELET MORPHOLOGY COMMENT NORMAL; RBC MORPHOLOGY COMMENT ABNORMAL
[2022-06-04 07:05] LABS: ANION GAP 11.6 mmol/L (8-16); BLOOD UREA NITROGEN < 5 mg/dL (7-26); BUN/CREATININE RATIO 7 (6-25); CALCIUM 7.7 mg/dL (8.4-10.2); CARBON DIOXIDE 24 mmol/L (22-29); CHLORIDE 111 mmol/L (98-107); CREATININE, SERUM 0.71 mg/dL (0.57-1.11); GLUCOSE 109 mg/dL (74-118); SODIUM 144 mmol/L (136-145)
[2022-06-04 07:08] LABS: POTASSIUM 2.6 mmol/L (3.5-5.1)
[2022-06-04] MEDS: ALBUTEROL SULF 0.083% NEB SOLN 3 ML NEB INH SCH ×2 (07:33→13:00)
[2022-06-04] MEDS ORDERED: POTASSIUM CHLORIDE 10MEQ EA PO ONE ×4 (08:45→11:00)
[2022-06-04] MEDS: ASCORBIC ACID 500 MG TAB PO SCH ×2 (08:47→17:00)
[2022-06-04] MEDS: METOCLOPRAMIDE HCL 10 MG/2ML VIAL IV SCH ×3 (08:47→16:30)
[2022-06-04] MEDS: ZINC SULFATE 50 MG CAP PO SCH ×2 (08:47→17:00)
[2022-06-04] MEDS: ASPIRIN 81 MG CHEW TAB PO SCH (08:48)
[2022-06-04] MEDS: LISINOPRIL 10 MG TAB PO SCH (08:48)
[2022-06-04] MEDS: MULTIVITAMINS/MINERALS TAB PO SCH (08:48)
[2022-06-04] MEDS: CHOLECALCIFEROL 400 UNIT TAB PO SCH (08:49)
[2022-06-04] MEDS ORDERED: SODIUM CHLORIDE 0.9% 250ML 250 ML IV ONE (09:15)
[2022-06-04] MEDS ORDERED: POTASSIUM CHLORIDE 20MEQ/100ML 100 ML IV ONE (12:00)
[2022-06-04] MEDS: ENOXAPARIN 30 MG/0.3 ML SYR SC SCH (17:00)
== END 2022-06-04 19:52 | disposition hospice, home (50) | DRG 640 ==
LOC: ER 20:48 → ERHOLD 22:11 → MED/SURG3 06-01 00:23 → OBSVTOIN 06-02 11:43
PROVIDERS: ADMIT Internal Medicine; ATTEND Internal Medicine
PROC: 0D758ZZ Dilation of Esophagus, Via Natural or Artificial Opening Endoscopic (ICD-10-PCS; principal; 2022-06-02 13:13)
PROC: 0DD68ZX Extraction of Stomach, Via Natural or Artificial Opening Endoscopic, Diagnostic (ICD-10-PCS; 2022-06-02 13:13)
DX: R62.7 Adult failure to thrive (principal); U07.1 COVID-19; D61.818 Other pancytopenia; N39.0 Urinary tract infection, site not specified; I69.351 Hemiplegia and hemiparesis following cerebral infarction affecting right dominant side; Z68.1 Body mass index [BMI] 19.9 or less, adult; B96.5 Pseudomonas (aeruginosa) (mallei) (pseudomallei) as the cause of diseases classified elsewhere; D69.6 Thrombocytopenia, unspecified; K22.2 Esophageal obstruction; D72.819 Decreased white blood cell count, unspecified; K76.0 Fatty (change of) liver, not elsewhere classified; D64.9 Anemia, unspecified; R63.30 Feeding difficulties, unspecified; R63.4 Abnormal weight loss; R63.0 Anorexia; K44.9 Diaphragmatic hernia without obstruction or gangrene; R11.2 Nausea with vomiting, unspecified; I10 Essential (primary) hypertension; E78.5 Hyperlipidemia, unspecified; M19.90 Unspecified osteoarthritis, unspecified site; K21.9 Gastro-esophageal reflux disease without esophagitis; Z83.3 Family history of diabetes mellitus; Z83.6 Family history of other diseases of the respiratory system; Z82.49 Family history of ischemic heart disease and other diseases of the circulatory system; Z83.79 Family history of other diseases of the digestive system; Z98.49 Cataract extraction status, unspecified eye; Z79.2 Long term (current) use of antibiotics; Z79.82 Long term (current) use of aspirin; Z79.899 Other long term (current) drug therapy
CPT/HCPCS: 36415; 43239; 43450; 71045; 76700; 80048; 80053; 80061; 81001; 82607; 82668; 82728; 82746; 82948; 83010; 83036; 83540; 83735; 84100; 84443; 84466; 85025; 85045; 85610; 85730; 86850; 86900; 86920; 87086; 87186; 88304; 88305; 88312; 88342; 94664; 94799; 99252; 99284; G0378; J0696; J1650; J2001; J2405; J2543; J2765; J3420; J7030; J7042; J7799

== ENCOUNTER 2022-08-06 00:17 | Emergency (ER) | payer MEDICARE ==
[~2022-08-06] VITALS: Ht 160 cm; Wt 41.7 kg
[2022-08-06 00:55] LABS: BASOPHILS % 0.4 % (0.0-1.0); EOSINOPHILS % 1.2 % (0.0-6.0); HEMATOCRIT 31.9 % (34.2-44.1); HEMOGLOBIN 9.6 g/dL (12.0-16.0); LYMPHOCYTES # (AUTO) 1.2 (1.0-3.2); LYMPHOCYTES % 46.1 % (18.0-39.1); MEAN CORPUSCULAR HEMOGLOBIN 30.4 pg (28-32); MEAN CORPUSCULAR HGB CONC 30.1 g/dL (31-35); MEAN CORPUSCULAR VOLUME 100.9 fL (81-99); MONOCYTES # (AUTO) 0.2 (0.2-0.8); MONOCYTES % 6.6 % (4.4-11.3); NEUTROPHILS # (AUTO) 1.2 (2.1-6.9); NEUTROPHILS % 45.7 % (38.7-80.0); PLATELET COUNT 116 x10e3/uL (140-360); RED BLOOD COUNT 3.16 x10e6/uL (3.6-5.1); RED CELL DISTRIBUTION WIDTH 15.2 % (11.7-14.4)
[2022-08-06 01:10] LABS: CALCIUM 9.1 mg/dL (8.4-10.2); CREATININE, SERUM 0.79 mg/dL (0.57-1.11)
[2022-08-06 01:23] VITALS: BP 141/55
== END 2022-08-06 01:30 | disposition home or self-care (01) ==
LOC: ER 00:25
DX: R07.89 Other chest pain (principal); I10 Essential (primary) hypertension; E78.5 Hyperlipidemia, unspecified; K21.9 Gastro-esophageal reflux disease without esophagitis; Z86.73 Personal history of transient ischemic attack (TIA), and cerebral infarction without residual deficits
CPT/HCPCS: 36415; 71045; 80048; 84484; 85025; 93005; 99284

== ENCOUNTER 2024-08-31 14:30 | Emergency (ER) | payer MEDICARE ==
[~2024-08-31] VITALS: Ht 160 cm; Wt 37.7 kg
[~2024-08-31 14:30] MED LIST changes: +FEROSUL325 MG PO
[2024-08-31 14:35] VITALS: TEMP 98.4
[2024-08-31] MEDS: SODIUM CHLORIDE 0.9% 500ML 500 ML IV ONE (15:08)
[2024-08-31] MEDS: MECLIZINE HCL 12.5 MG TAB PO ONE (15:08)
[2024-08-31 16:35] VITALS: PULSE 70; RESP 18; O2SAT 98
== END 2024-08-31 17:27 | disposition home or self-care (01) ==
LOC: FSED 14:34
DX: R53.1 Weakness (principal); R42 Dizziness and giddiness; I10 Essential (primary) hypertension; E78.5 Hyperlipidemia, unspecified; K21.9 Gastro-esophageal reflux disease without esophagitis; M19.09 Primary osteoarthritis, other specified site; Z86.73 Personal history of transient ischemic attack (TIA), and cerebral infarction without residual deficits
CPT/HCPCS: 70450; 71046; 71250; 80048; 81003; 84484; 85025; 93005; 99283; 99284; J7040; J8597

== ENCOUNTER 2024-08-31 20:38 | Emergency (ER) | payer MEDICARE ==
[~2024-08-31] VITALS: Ht 160 cm; Wt 37.6 kg
[2024-08-31 20:55] VITALS: PULSE 80; RESP 16; TEMP 97.8
[2024-08-31 22:41] VITALS: BP 156/66; PULSE 81; RESP 18; TEMP 97.8; O2SAT 98
== END 2024-08-31 23:04 | disposition home or self-care (01) ==
LOC: FSED 20:44
DX: R53.1 Weakness (principal); R63.0 Anorexia; I70.0 Atherosclerosis of aorta; R91.8 Other nonspecific abnormal finding of lung field; E04.1 Nontoxic single thyroid nodule; I10 Essential (primary) hypertension; E78.5 Hyperlipidemia, unspecified; D64.9 Anemia, unspecified; K21.9 Gastro-esophageal reflux disease without esophagitis; M19.09 Primary osteoarthritis, other specified site
CPT/HCPCS: 71250; 99283

== ENCOUNTER 2024-09-03 07:15 | Emergency (ER) | payer MEDICARE ==
[2024-09-03 07:20] VITALS: PULSE 72; RESP 20; TEMP 98.2
[2024-09-03] MEDS ORDERED: TYLENOL325 MG PO (07:48)
[2024-09-03] MEDS ORDERED: PROBIOTIC & AC1 EACH PO (07:48)
[2024-09-03] MEDS ORDERED: CEFDINIR300 MG PO (07:48)
[2024-09-03] MEDS: KETOROLAC TROMETHAMINE 30 MG/ML VIAL IV ONE (07:56)
[2024-09-03] MEDS: SODIUM CHLORIDE 0.9% 500ML 500 ML IV STA (07:57)
[2024-09-03 08:43] VITALS: BP 148/67; PULSE 65; RESP 16; TEMP 98; O2SAT 100
== END 2024-09-03 08:40 | disposition home or self-care (01) ==
LOC: FSED 07:34
DX: R10.9 Unspecified abdominal pain (principal); N12 Tubulo-interstitial nephritis, not specified as acute or chronic; N39.0 Urinary tract infection, site not specified; I10 Essential (primary) hypertension; D64.9 Anemia, unspecified; E78.5 Hyperlipidemia, unspecified; M19.09 Primary osteoarthritis, other specified site; Z86.73 Personal history of transient ischemic attack (TIA), and cerebral infarction without residual deficits
CPT/HCPCS: 74176; 80053; 81003; 85025; 99283; J0696; J1885; J7040

== ENCOUNTER 2024-09-04 12:40 | Emergency (ER) | payer MEDICARE ==
[~2024-09-04] VITALS: Ht 157.5 cm; Wt 37.6 kg
[~2024-09-04 12:40] MED LIST changes: +PROBIOTIC & AC1 EACH PO; +TYLENOL325 MG PO
[2024-09-04 13:32] VITALS: PULSE 69; RESP 18; TEMP 97.9; O2SAT 99
== END 2024-09-04 14:29 | disposition home or self-care (01) ==
LOC: ER 14:01
DX: R49.0 Dysphonia (principal); J30.2 Other seasonal allergic rhinitis; I10 Essential (primary) hypertension; E78.5 Hyperlipidemia, unspecified; D64.9 Anemia, unspecified; K21.9 Gastro-esophageal reflux disease without esophagitis; M19.09 Primary osteoarthritis, other specified site; Z86.73 Personal history of transient ischemic attack (TIA), and cerebral infarction without residual deficits
CPT/HCPCS: 99283

== ENCOUNTER 2024-12-30 10:04 | Emergency (ER) | payer MEDICARE ==
[~2024-12-30] VITALS: Ht 152.4 cm; Wt 35.8 kg
[2024-12-30 10:38] VITALS: PULSE 78; RESP 18; TEMP 98.1; O2SAT 100
== END 2024-12-30 13:48 | disposition home or self-care (01) ==
LOC: ER 10:41
DX: S00.83XA Contusion of other part of head, initial encounter (principal); S40.012A Contusion of left shoulder, initial encounter; S80.02XA Contusion of left knee, initial encounter; W01.0XXA Fall on same level from slipping, tripping and stumbling without subsequent striking against object, initial encounter; Y93.01 Activity, walking, marching and hiking; Y92.89 Other specified places as the place of occurrence of the external cause; I10 Essential (primary) hypertension; E78.5 Hyperlipidemia, unspecified; D64.9 Anemia, unspecified; K21.9 Gastro-esophageal reflux disease without esophagitis; Z86.73 Personal history of transient ischemic attack (TIA), and cerebral infarction without residual deficits; Z86.2 Personal history of diseases of the blood and blood-forming organs and certain disorders involving the immune mechanism
CPT/HCPCS: 70450; 72125; 72170; 99283

== ENCOUNTER 2025-02-16 13:24 | Emergency (ER) | payer MEDICARE ==
[~2025-02-16] VITALS: Ht 157.5 cm; Wt 35.8 kg
[2025-02-16 13:30] VITALS: PULSE 86; RESP 18; TEMP 98.3
[2025-02-16] MEDS: ACETAMINOPHEN 325 MG TAB PO ONE (15:10)
[2025-02-16] MEDS ORDERED: ULTRAM 50MG50 MG PO (15:34)
[2025-02-16 16:24] VITALS: BP 110/68; PULSE 74; RESP 18; TEMP 98.6; O2SAT 98
== END 2025-02-16 16:11 | disposition home or self-care (01) ==
LOC: ER 13:40
DX: S42.292A Other displaced fracture of upper end of left humerus, initial encounter for closed fracture (principal); W18.39XA Other fall on same level, initial encounter; Y93.01 Activity, walking, marching and hiking; Y92.89 Other specified places as the place of occurrence of the external cause; I10 Essential (primary) hypertension; E78.5 Hyperlipidemia, unspecified; M19.09 Primary osteoarthritis, other specified site; D64.9 Anemia, unspecified; K21.9 Gastro-esophageal reflux disease without esophagitis; Z86.73 Personal history of transient ischemic attack (TIA), and cerebral infarction without residual deficits
CPT/HCPCS: 71046; 99284